=== PATIENT | male | born 1985 | race African-American/Black ===

== ENCOUNTER 2021-07-20 12:12 | Inpatient (IN) ==
[2021-07-20] MEDS ORDERED: SODIUM CHLORIDE 0.9% 1000ML 2,000 ML IV ONE (12:18)
--- NOTE | 2021-07-20 12:24 | Emergency Department Note ---
Impression & Plan DKA (diabetic ketoacidosis), Epigastric abdominal pain, Pancreatitis ED Provider Note NAME: CAMACHO DILLARD AGE: 36 SEX: M : 1985 ARRIVES VIA: Ambulance INFORMANT: Patient ED PROVIDER(S): Chace Cruz DO CHIEF COMPLAINT: Altered mental status HPI: Patient is a 36-year-old male who presents the ER for altered mental status. Patient was traveling to [facility]. He has been stuck at a truck stop for the past day. They note that he went into a car and asked for help. He was very confused and cold. Is complaining of increased urination and feeling very thirsty. He has some mild abdominal pain. No vomiting. He denies any history. No headache or change in vision. No chest pain or shortness of breath. No nausea vomiting or diarrhea. No other exacerbating or remitting factors. History is slightly limited secondary to mentation. ROS: Review of systems is slightly limited secondary to mentation PAST MEDICAL HISTORY:See Below PAST SURGICAL HISTORY:See Below FAMILY HISTORY:See Below SOCIAL HISTORY:See Below HOME MEDICATIONS:See Below ALLERGIES:See Below VITALS:See Below PHYSICAL EXAMINATION: GENERAL: Sitting up in bed, alert, ill-appearing, lethargic EYE EXAM: normal conjunctiva. PERRL and EOM's grossly intact. OROPHARYNX: no exudate, no erythema, lips, buccal mucosa, and tongue normal and mucous membranes are moist NECK: supple, no nuchal rigidity, no adenopathy, non-tender LUNGS: Clear to auscultation. Normal chest wall mechanics HEART: no murmurs, S1 normal and S2 normal ABDOMEN: abdomen soft, non-tender, normo-active bowel sounds, no masses, no rebound or guarding. UPPER EXTREMITIES: upper extremities are grossly normal. LOWER EXTREMITIES: No pitting edema. NEURO EXAM: Lethargic but oriented to person place and year, cranial nerves II- XII intact, normal speech, no weakness of arms, no weakness of legs. No drift. Finger to nose intact. Gross sensation intact. MEDICAL DECISION MAKING: Patient is a 36-year-old male with no significant past medical history the presents ER with above-stated complaint. IV was established blood work was obtained. Labs show leukocytosis of 16,000. No significant anemia. VBG with a pH of 7.0 and a CO2 of close to 9. BMP with a potassium of 5.4. Bicarb is 6. Glucose was over thousand. Lipase was up at 2000. UA was contaminated. Patient was given IV fluids and IV antibiotics. He was given 3 L IV as well as placed on insulin drip and given a bolus. He was monitored closely. He was discussed with the hospitalist as well as the radio host and admitted for further work-up. Triage Nursing notes reviewed. Limited review of prior medical records performed Vital Signs: reviewed and remarkable for tachy Differential diagnosis: Differential diagnoses includes but is not limited to toxic, metabolic, infectious, traumatic, cardiac, neurologic, hematologic, psychiatric and inflammatory etiologies. ER treatment provided: See below Diagnostics interpreted by me: ECG: Sinus rhythm rate 92 Normal axis T wave inversions in the inferior leads as well as nonspecific changes in the inferior and lateral leads Cardiac Monitoring: An order was placed for continuous cardiac monitoring. The monitor shows a rate of 92 with sinus rhythm. Laboratory studies: As stated above and show below. Imaging studies: CT abdomen pelvis shows pancreatitis CT head was negative chest x-ray was unremarkable Consultation(s): As stated above Procedures: none Critical Care: I have personally spent 35 minutes of critical care time in the direct management of this patient. This includes bedside care, interpretation of diagnostic studies, and testing, discussion with consultants, patient, and family members, and other required patient management activities. This 35 minutes is in excess of all separately billable procedures. Past Med/Surg History Medical History (Updated 07/20/21 @ 18:30 by Chace Cruz DO) No known health problems Surgical History (Updated 07/20/21 @ 17:11 by Lidya Art RN) No history of previous surgery Social History Smoking Status: Unknown if ever smoked Preferred Language: Kiswahili Communication Ability: Effective Paper Sorter Required: No Beliefs That Will Affect Care: None Current Living Situation: Alone Feels Safe at Home: Yes Assistive Devices: None Allergies Allergies Allergy/AdvReac Type Severity Reaction Status Date / Time No Known Allergies Allergy Unverified 07/20/21 13:48 Home Meds Home Medications Medication Instructions Recorded Confirmed No Known Home Medications 07/20/21 07/20/21 Results & Data (ED) Vital Signs Vital Signs - 24 hr 07/20/21 12:15 07/20/21 13:00 07/20/21 13:30 Temperature 34.7 C L 33.3 C L Temperature Source Rectal Rectal Pulse Rate 93 H 94 H Respiratory Rate 28 H 22 Respiratory Depth Normal Blood Pressure 112/72 156/82 H Blood Pressure Mean 85 106 Blood Pressure Position Lying Pulse Oximetry 98 99 Oxygen Delivery Method Room Air Room Air Sepsis Recent Fever Within 48 Hours No Sepsis New/Unexplained Change in Mental Status Yes Sepsis Action Taken by Nursing Physician Notified 07/20/21 14:00 Temperature Temperature Source Pulse Rate 102 H Respiratory Rate 24 Respiratory Depth Blood Pressure 152/82 H Blood Pressure Mean 105 Blood Pressure Position Pulse Oximetry 100 Oxygen Delivery Method Room Air Sepsis Recent Fever Within 48 Hours Sepsis New/Unexplained Change in Mental Status Sepsis Action Taken by Nursing Laboratory Data Result diagrams: 07/20/21 14:13 07/20/21 17:36 Lab Results 07/20/21 07/20/21 07/20/21 Range/Units 12:17 12:34 12:34 WBC Cancelled RBC Cancelled Hgb Cancelled POC Hgb (14.0-18.0) g/dl Hct Cancelled POC Hct (42-52) % MCV Cancelled MCH Cancelled MCHC Cancelled RDW Std Deviation Cancelled RDW Coeff of Patrizia Cancelled Plt Count Cancelled MPV Cancelled Immature Gran % (Auto) Cancelled Neut % (Auto) Cancelled Lymph % (Auto) Cancelled Cobb % (Auto) Cancelled Eos % (Auto) Cancelled Baso % (Auto) Cancelled Neut # (Auto) Cancelled Lymph # (Auto) Cancelled Cobb # (Auto) Cancelled Eos # (Auto) Cancelled Baso # (Auto) Cancelled Immature Gran # (Auto) Cancelled Absolute Nucleated RBC Cancelled Nucleated RBC % (auto) Cancelled Neutrophils % (Manual) Cancelled Band Neutrophils % Cancelled Lymphocytes % (Manual) Cancelled Prolymphocyte % Cancelled Reactive Lymphs % (Man) Cancelled Monocytes % (Manual) Cancelled Eosinophils % (Manual) Cancelled Basophils % (Manual) Cancelled Metamyelocytes % (Man) Cancelled Myelocytes % (Man) Cancelled Promyelocytes % (Man) Cancelled Blast Cells % (Manual) Cancelled Plasma Cell % (Manual) Cancelled Other Cells % Cancelled Nucleated RBC % Cancelled Neutrophils # (Manual) Cancelled Band Neutrophils # Cancelled Total Absolute Neuts Cancelled Lymphocytes # (Manual) Cancelled Prolymphocyte # Cancelled Reactive Lymphs # Cancelled Total Abs Lymphocytes Cancelled Monocytes # (Manual) Cancelled Eosinophils # (Manual) Cancelled Basophils # (Manual) Cancelled Metamyelocytes # (Man) Cancelled Myelocytes # (Manual) Cancelled Promyelocytes # (Man) Cancelled Blast Cells # (Man) Cancelled Plasma Cell # (Manual) Cancelled Other Cells # Cancelled Nucleated RBCs # (Man) Cancelled Hypersegmented Neuts Cancelled Hyposegmented Neuts Cancelled Hypogranular Neuts Cancelled Large Granular Lymphs Cancelled # Lrg Granular Lymphs Cancelled Hairy Cells Cancelled Smudge Cells Cancelled Toxic Granulation Cancelled Toxic Vacuolation Cancelled Dohle Bodies Cancelled Qasim Rods Cancelled Platelet Estimate Cancelled Hypogranular Platelets Cancelled Clumped Platelets Cancelled Giant Platelets Cancelled Platelet Satelliting Cancelled RBC Morphology Cancelled Polychromasia Cancelled Hypochromasia Cancelled Poikilocytosis Cancelled Basophilic Stippling Cancelled Anisocytosis Cancelled Microcytosis Cancelled Macrocytosis Cancelled Spherocytes Cancelled Pappenheimer Bodies Cancelled Sickle Cells Cancelled Target Cells Cancelled Tear Drop Cells Cancelled Ovalocytes Cancelled Stomatocytes Cancelled [place]-Rainbow Bodies Cancelled Echinocytes Cancelled Acanthocytes (Spur) Cancelled Rouleaux Cancelled RBC Agglutinates Cancelled Schistocytes Cancelled RBC Morph Comment Cancelled Sezary Cell Cancelled PT 11.3 (9.0-12.0) Seconds INR 1.1 (0.9-1.1) APTT 21.4 (21.0-31.0) Seconds PTT Ratio 0.8 VBG pH (7.36-7.41) VBG pCO2 (38-50) mmHg VBG pO2 mmHg VBG HCO3 mmol/L VBG O2 Saturation % VBG Base Excess mEq/L Barometric Pressure mm/Hg POC Sodium (135-144) mmol/L Sodium (136-145) mmol/L POC Potassium (3.3-5.0) mmol/L Potassium POC Chloride (101-112) mmol/L Chloride (98-107) mmol/L Carbon Dioxide (21-32) mmol/L POC Total CO2 (24-31) mmol/L Anion Gap (3-11) POC Anion Gap (16-25) mmol/L POC BUN (7-18) mg/dl BUN (6-23) mg/dl Creatinine (0.6-1.4) mg/dl POC Creatinine (0.6-1.3) mg/dl Est Cr Clr Drug Dosing Est GFR ( Amer) ml/min Est GFR (Non-Af Amer) ml/min BUN/Creatinine Ratio (10-20) Glucose (70-99(Fasting)) mg/dl POC Glucose > 600 H* (70-99) mg/dl POC Glucose (other) (70-99) mg/dl Lactate (0.4-2.0) mmol/L Calcium (8.5-10.1) mg/dl POC Ioniz Calcium Marian (1.12-1.32) mmol/l Magnesium (1.7-2.4) mg/dl Total Bilirubin (0.2-1.0) mg/dl AST ALT (7-52) U/L Alkaline Phosphatase (34-104) U/L Total Protein (6.0-8.3) gm/dl Albumin (3.4-5.0) gm/dl Globulin (2.5-4.0) gm/dl Albumin/Globulin Ratio (0.9-2) Lipase Urine Color Urine Appearance (Clear) Urine pH (4.5-7.5) Ur Specific [place] (1.000-1.030) Urine Protein (Negative) Urine Glucose (UA) (Negative) Urine Ketones (Negative) Urine Blood (Negative) Urine Nitrite (Negative) Urine Bilirubin (Negative) Urine Urobilinogen (Negative) Ur Leukocyte Esterase (Negative) Urine WBC (Auto) (0-5) /hpf Urine RBC (Auto) (0-4) /hpf U Hyaline Cast (Auto) (0-5) /lpf U Epithel Cells (Auto) (0-5) /lpf Urine Bacteria (Auto) (Negative) Granular Casts (0) /lpf Urine Yeast Urine Opiates Screen (Neg) Ur Methadone, Qual (Neg) Urine Barbiturates (Neg) Ur Phencyclidine (PCP) (Neg) U Amphetamin/Meth Scrn (Neg) MDMA (Ecstasy) Screen (Neg) U Benzodiazepines Scrn (Neg) Ur Cocaine Metabolite (Neg) U Marijuana (THC) Screen (Neg) 07/20/21 07/20/21 07/20/21 Range/Units 12:34 12:34 12:34 WBC RBC Hgb POC Hgb (14.0-18.0) g/dl Hct POC Hct (42-52) % MCV MCH MCHC RDW Std Deviation RDW Coeff of Patrizia Plt Count MPV Immature Gran % (Auto) Neut % (Auto) Lymph % (Auto) Cobb % (Auto) Eos % (Auto) Baso % (Auto) Neut # (Auto) Lymph # (Auto) Cobb # (Auto) Eos # (Auto) Baso # (Auto) Immature Gran # (Auto) Absolute Nucleated RBC Nucleated RBC % (auto) Neutrophils % (Manual) Band Neutrophils % Lymphocytes % (Manual) Prolymphocyte % Reactive Lymphs % (Man) Monocytes % (Manual) Eosinophils % (Manual) Basophils % (Manual) Metamyelocytes % (Man) Myelocytes % (Man) Promyelocytes % (Man) Blast Cells % (Manual) Plasma Cell % (Manual) Other Cells % Nucleated RBC % Neutrophils # (Manual) Band Neutrophils # Total Absolute Neuts Lymphocytes # (Manual) Prolymphocyte # Reactive Lymphs # Total Abs Lymphocytes Monocytes # (Manual) Eosinophils # (Manual) Basophils # (Manual) Metamyelocytes # (Man) Myelocytes # (Manual) Promyelocytes # (Man) Blast Cells # (Man) Plasma Cell # (Manual) Other Cells # Nucleated RBCs # (Man) Hypersegmented Neuts Hyposegmented Neuts Hypogranular Neuts Large Granular Lymphs # Lrg Granular Lymphs Hairy Cells Smudge Cells Toxic Granulation Toxic Vacuolation Dohle Bodies Qasim Rods Platelet Estimate Hypogranular Platelets Clumped Platelets Giant Platelets Platelet Satelliting RBC Morphology Polychromasia Hypochromasia Poikilocytosis Basophilic Stippling Anisocytosis Microcytosis Macrocytosis Spherocytes Pappenheimer Bodies Sickle Cells Target Cells Tear Drop Cells Ovalocytes Stomatocytes [place]-Rainbow Bodies Echinocytes Acanthocytes (Spur) Rouleaux RBC Agglutinates Schistocytes RBC Morph Comment Sezary Cell PT (9.0-12.0) Seconds INR (0.9-1.1) APTT (21.0-31.0) Seconds PTT Ratio VBG pH 7.06 L (7.36-7.41) VBG pCO2 30 L (38-50) mmHg VBG pO2 70 mmHg VBG HCO3 8 mmol/L VBG O2 Saturation 89.0 % VBG Base Excess -21.0 mEq/L Barometric Pressure 730.2 mm/Hg POC Sodium (135-144) mmol/L Sodium 130 L (136-145) mmol/L POC Potassium (3.3-5.0) mmol/L Potassium TNP POC Chloride (101-112) mmol/L Chloride 93 L (98-107) mmol/L Carbon Dioxide 7 L* (21-32) mmol/L POC Total CO2 (24-31) mmol/L Anion Gap 30 H (3-11) POC Anion Gap (16-25) mmol/L POC BUN (7-18) mg/dl BUN 55 H (6-23) mg/dl Creatinine 3.38 H (0.6-1.4) mg/dl POC Creatinine (0.6-1.3) mg/dl Est Cr Clr Drug Dosing Not Reportable Est GFR ( Amer) 25.8 ml/min Est GFR (Non-Af Amer) 22.3 ml/min BUN/Creatinine Ratio 16.3 (10-20) Glucose 1010 H* (70-99(Fasting)) mg/dl POC Glucose (70-99) mg/dl POC Glucose (other) (70-99) mg/dl Lactate 1.9 (0.4-2.0) mmol/L Calcium 9.2 (8.5-10.1) mg/dl POC Ioniz Calcium Marian (1.12-1.32) mmol/l Magnesium 3.4 H (1.7-2.4) mg/dl Total Bilirubin 0.4 (0.2-1.0) mg/dl AST TNP ALT 61 H (7-52) U/L Alkaline Phosphatase 123 H (34-104) U/L Total Protein 8.7 H (6.0-8.3) gm/dl Albumin 3.9 (3.4-5.0) gm/dl Globulin 4.8 H (2.5-4.0) gm/dl Albumin/Globulin Ratio 0.8 L (0.9-2) Lipase Urine Color Urine Appearance (Clear) Urine pH (4.5-7.5) Ur Specific [place] (1.000-1.030) Urine Protein (Negative) Urine Glucose (UA) (Negative) Urine Ketones (Negative) Urine Blood (Negative) Urine Nitrite (Negative) Urine Bilirubin (Negative) Urine Urobilinogen (Negative) Ur Leukocyte Esterase (Negative) Urine WBC (Auto) (0-5) /hpf Urine RBC (Auto) (0-4) /hpf U Hyaline Cast (Auto) (0-5) /lpf U Epithel Cells (Auto) (0-5) /lpf Urine Bacteria (Auto) (Negative) Granular Casts (0) /lpf Urine Yeast Urine Opiates Screen (Neg) Ur Methadone, Qual (Neg) Urine Barbiturates (Neg) Ur Phencyclidine (PCP) (Neg) U Amphetamin/Meth Scrn (Neg) MDMA (Ecstasy) Screen (Neg) U Benzodiazepines Scrn (Neg) Ur Cocaine Metabolite (Neg) U Marijuana (THC) Screen (Neg) 07/20/21 07/20/21 07/20/21 Range/Units 12:34 12:39 13:00 WBC RBC Hgb POC Hgb 17.0 (14.0-18.0) g/dl Hct POC Hct 50 (42-52) % MCV MCH MCHC RDW Std Deviation RDW Coeff of Patrizia Plt Count MPV Immature Gran % (Auto) Neut % (Auto) Lymph % (Auto) Cobb % (Auto) Eos % (Auto) Baso % (Auto) Neut # (Auto) Lymph # (Auto) Cobb # (Auto) Eos # (Auto) Baso # (Auto) Immature Gran # (Auto) Absolute Nucleated RBC Nucleated RBC % (auto) Neutrophils % (Manual) Band Neutrophils % Lymphocytes % (Manual) Prolymphocyte % Reactive Lymphs % (Man) Monocytes % (Manual) Eosinophils % (Manual) Basophils % (Manual) Metamyelocytes % (Man) Myelocytes % (Man) Promyelocytes % (Man) Blast Cells % (Manual) Plasma Cell % (Manual) Other Cells % Nucleated RBC % Neutrophils # (Manual) Band Neutrophils # Total Absolute Neuts Lymphocytes # (Manual) Prolymphocyte # Reactive Lymphs # Total Abs Lymphocytes Monocytes # (Manual) Eosinophils # (Manual) Basophils # (Manual) Metamyelocytes # (Man) Myelocytes # (Manual) Promyelocytes # (Man) Blast Cells # (Man) Plasma Cell # (Manual) Other Cells # Nucleated RBCs # (Man) Hypersegmented Neuts Hyposegmented Neuts Hypogranular Neuts Large Granular Lymphs # Lrg Granular Lymphs Hairy Cells Smudge Cells Toxic Granulation Toxic Vacuolation Dohle Bodies Qasim Rods Platelet Estimate Hypogranular Platelets Clumped Platelets Giant Platelets Platelet Satelliting RBC Morphology Polychromasia Hypochromasia Poikilocytosis Basophilic Stippling Anisocytosis Microcytosis Macrocytosis Spherocytes Pappenheimer Bodies Sickle Cells Target Cells Tear Drop Cells Ovalocytes Stomatocytes [place]-Rainbow Bodies Echinocytes Acanthocytes (Spur) Rouleaux RBC Agglutinates Schistocytes RBC Morph Comment Sezary Cell PT (9.0-12.0) Seconds INR (0.9-1.1) APTT (21.0-31.0) Seconds PTT Ratio VBG pH (7.36-7.41) VBG pCO2 (38-50) mmHg VBG pO2 mmHg VBG HCO3 mmol/L VBG O2 Saturation % VBG Base Excess mEq/L Barometric Pressure mm/Hg POC Sodium 133 L (135-144) mmol/L Sodium (136-145) mmol/L POC Potassium 5.3 H (3.3-5.0) mmol/L Potassium POC Chloride 104 (101-112) mmol/L Chloride (98-107) mmol/L Carbon Dioxide (21-32) mmol/L POC Total CO2 9 L* (24-31) mmol/L Anion Gap (3-11) POC Anion Gap 25.0 (16-25) mmol/L POC BUN 75 H (7-18) mg/dl BUN (6-23) mg/dl Creatinine (0.6-1.4) mg/dl POC Creatinine 3.1 H (0.6-1.3) mg/dl Est Cr Clr Drug Dosing Est GFR ( Amer) ml/min Est GFR (Non-Af Amer) ml/min BUN/Creatinine Ratio (10-20) Glucose (70-99(Fasting)) mg/dl POC Glucose (70-99) mg/dl POC Glucose (other) > 700 H* (70-99) mg/dl Lactate (0.4-2.0) mmol/L Calcium (8.5-10.1) mg/dl POC Ioniz Calcium Marian 1.07 L (1.12-1.32) mmol/l Magnesium (1.7-2.4) mg/dl Total Bilirubin (0.2-1.0) mg/dl AST ALT (7-52) U/L Alkaline Phosphatase (34-104) U/L Total Protein (6.0-8.3) gm/dl Albumin (3.4-5.0) gm/dl Globulin (2.5-4.0) gm/dl Albumin/Globulin Ratio (0.9-2) Lipase Cancelled Urine Color Yellow Urine Appearance Clear (Clear) Urine pH 5.0 (4.5-7.5) Ur Specific [place] 1.027 (1.000-1.030) Urine Protein 2+ H (Negative) Urine Glucose (UA) 3+ H (Negative) Urine Ketones 1+ H (Negative) Urine Blood 3+ H (Negative) Urine Nitrite Negative (Negative) Urine Bilirubin Negative (Negative) Urine Urobilinogen Negative (Negative) Ur Leukocyte Esterase Negative (Negative) Urine WBC (Auto) 5-10 H (0-5) /hpf Urine RBC (Auto) 0-4 (0-4) /hpf U Hyaline Cast (Auto) 10-30 H (0-5) /lpf U Epithel Cells (Auto) >30 H (0-5) /lpf Urine Bacteria (Auto) 1+ H (Negative) Granular Casts 1-5 H (0) /lpf Urine Yeast Not Reportable Urine Opiates Screen (Neg) Ur Methadone, Qual (Neg) Urine Barbiturates (Neg) Ur Phencyclidine (PCP) (Neg) U Amphetamin/Meth Scrn (Neg) MDMA (Ecstasy) Screen (Neg) U Benzodiazepines Scrn (Neg) Ur Cocaine Metabolite (Neg) U Marijuana (THC) Screen (Neg) 07/20/21 07/20/21 07/20/21 Range/Units 13:00 14:13 14:21 WBC 16.40 H RBC 5.41 Hgb 14.7 POC Hgb (14.0-18.0) g/dl Hct 45.8 POC Hct (42-52) % MCV 84.7 MCH 27.2 MCHC 32.1 RDW Std Deviation 42.4 RDW Coeff of Patrizia 13.9 Plt Count 283 MPV 13.0 H Immature Gran % (Auto) 0.5 Neut % (Auto) 88.6 Lymph % (Auto) 8.5 Cobb % (Auto) 2.3 Eos % (Auto) 0.0 Baso % (Auto) 0.1 Neut # (Auto) 14.54 H Lymph # (Auto) 1.39 Cobb # (Auto) 0.37 Eos # (Auto) 0.00 Baso # (Auto) 0.01 Immature Gran # (Auto) 0.09 H Absolute Nucleated RBC Nucleated RBC % (auto) Neutrophils % (Manual) Band Neutrophils % Lymphocytes % (Manual) Prolymphocyte % Reactive Lymphs % (Man) Monocytes % (Manual) Eosinophils % (Manual) Basophils % (Manual) Metamyelocytes % (Man) Myelocytes % (Man) Promyelocytes % (Man) Blast Cells % (Manual) Plasma Cell % (Manual) Other Cells % Nucleated RBC % Neutrophils # (Manual) Band Neutrophils # Total Absolute Neuts Lymphocytes # (Manual) Prolymphocyte # Reactive Lymphs # Total Abs Lymphocytes Monocytes # (Manual) Eosinophils # (Manual) Basophils # (Manual) Metamyelocytes # (Man) Myelocytes # (Manual) Promyelocytes # (Man) Blast Cells # (Man) Plasma Cell # (Manual) Other Cells # Nucleated RBCs # (Man) Hypersegmented Neuts Hyposegmented Neuts Hypogranular Neuts Large Granular Lymphs # Lrg Granular Lymphs Hairy Cells Smudge Cells Toxic Granulation Toxic Vacuolation Dohle Bodies Qasim Rods Platelet Estimate Hypogranular Platelets Clumped Platelets Giant Platelets Platelet Satelliting RBC Morphology Polychromasia Hypochromasia Poikilocytosis Basophilic Stippling Anisocytosis Microcytosis Macrocytosis Spherocytes Pappenheimer Bodies Sickle Cells Target Cells Tear Drop Cells Ovalocytes Stomatocytes [place]-Rainbow Bodies Echinocytes Acanthocytes (Spur) Rouleaux RBC Agglutinates Schistocytes RBC Morph Comment Sezary Cell PT (9.0-12.0) Seconds INR (0.9-1.1) APTT (21.0-31.0) Seconds PTT Ratio VBG pH (7.36-7.41) VBG pCO2 (38-50) mmHg VBG pO2 mmHg VBG HCO3 mmol/L VBG O2 Saturation % VBG Base Excess mEq/L Barometric Pressure mm/Hg POC Sodium (135-144) mmol/L Sodium (136-145) mmol/L POC Potassium (3.3-5.0) mmol/L Potassium POC Chloride (101-112) mmol/L Chloride (98-107) mmol/L Carbon Dioxide (21-32) mmol/L POC Total CO2 (24-31) mmol/L Anion Gap (3-11) POC Anion Gap (16-25) mmol/L POC BUN (7-18) mg/dl BUN (6-23) mg/dl Creatinine (0.6-1.4) mg/dl POC Creatinine (0.6-1.3) mg/dl Est Cr Clr Drug Dosing Est GFR ( Amer) ml/min Est GFR (Non-Af Amer) ml/min BUN/Creatinine Ratio (10-20) Glucose (70-99(Fasting)) mg/dl POC Glucose > 600 H* (70-99) mg/dl POC Glucose (other) (70-99) mg/dl Lactate (0.4-2.0) mmol/L Calcium (8.5-10.1) mg/dl POC Ioniz Calcium Marian (1.12-1.32) mmol/l Magnesium (1.7-2.4) mg/dl Total Bilirubin (0.2-1.0) mg/dl AST ALT (7-52) U/L Alkaline Phosphatase (34-104) U/L Total Protein (6.0-8.3) gm/dl Albumin (3.4-5.0) gm/dl Globulin (2.5-4.0) gm/dl Albumin/Globulin Ratio (0.9-2) Lipase Urine Color Urine Appearance (Clear) Urine pH (4.5-7.5) Ur Specific [place] (1.000-1.030) Urine Protein (Negative) Urine Glucose (UA) (Negative) Urine Ketones (Negative) Urine Blood (Negative) Urine Nitrite (Negative) Urine Bilirubin (Negative) Urine Urobilinogen (Negative) Ur Leukocyte Esterase (Negative) Urine WBC (Auto) (0-5) /hpf Urine RBC (Auto) (0-4) /hpf U Hyaline Cast (Auto) (0-5) /lpf U Epithel Cells (Auto) (0-5) /lpf Urine Bacteria (Auto) (Negative) Granular Casts (0) /lpf Urine Yeast Urine Opiates Screen Neg (Neg) Ur Methadone, Qual Neg (Neg) Urine Barbiturates Neg (Neg) Ur Phencyclidine (PCP) Neg (Neg) U Amphetamin/Meth Scrn Neg (Neg) MDMA (Ecstasy) Screen Neg (Neg) U Benzodiazepines Scrn Neg (Neg) Ur Cocaine Metabolite Neg (Neg) U Marijuana (THC) Screen Neg (Neg) Administered Medications Insulin Human Regular 250 (units/ Sodium Chloride) 250 mls @ 12 mls/hr IV .[id number] [facility]; Protocol Stop: 08/19/21 12:59 Last Titration: 07/20/21 17:50 Dose: 14.4 units/hr, 14.4 mls/hr Documented by: [id number] Cosigned by: [id number] Admin: 07/20/21 16:36 Dose: Not Given Documented by: [id number] Titration: 07/20/21 16:30 Dose: 12 units/hr, 12 mls/hr Documented by: [id number] Cosigned by: [id number] Admin: 07/20/21 13:26 Dose: 10 units/hr, 10 mls/hr Documented by: [id number] Cosigned by: [id number] Insulin Aspart (Insulin Aspart Per Unit) 0 units SC ACHS [facility] Stop: 08/19/21 16:29 Last Admin: 07/20/21 16:38 Dose: Not Given Documented by: [id number] Potassium Phosphate (Pot Phosphate Monobasic W/ Sod Tab) 1 tab PO QID [facility] Stop: 08/19/21 16:59 Last Admin: 07/20/21 17:50 Dose: 1 tab Documented by: [id number] Discontinued Medications Sodium Chloride (Nss 1000ml) 2,000 mls @ 999 mls/hr IV .Q2H1M ONE Stop: 07/20/21 14:18 Last Infusion: 07/20/21 14:28 Dose: 0 mls/hr Documented by: [id number] Admin: 07/20/21 12:38 Dose: 999 mls/hr Documented by: [id number] Parenteral Electrolytes (Plasma-Lyte A) 1,000 mls @ 999 mls/hr IV .Q1H1M ONE Stop: 07/20/21 13:46 Last Infusion: 07/20/21 14:28 Dose: 0 mls/hr Documented by: [id number] Admin: 07/20/21 13:27 Dose: 999 mls/hr Documented by: [id number] Cefepime HCl (Maxipime) 2,000 mg in 20 mls @ 5 mls/min IV NOW [facility]; Protocol Stop: 07/20/21 13:23 Last Admin: 07/20/21 13:58 Dose: 5 mls/min Documented by: [id number] Sodium Chloride (Nss 1000ml) 1,000 mls @ 250 mls/hr IV .Q4H [facility] Stop: 08/19/21 14:59 Last Admin: 07/20/21 16:59 Dose: Not Given Documented by: [id number] Lactated Ringer's (Lr) 2,000 mls @ 999 mls/hr IV .Q2H1M ONE Stop: 07/20/21 17:15 Last Infusion: 07/20/21 18:22 Dose: 0 mls/hr Documented by: [id number] Admin: 07/20/21 16:59 Dose: 999 mls/hr Documented by: [id number] Insulin Human Regular (Novolin-R Bolus From Bag) 10 units IV ONE ONE Stop: 07/20/21 13:31 Last Admin: 07/20/21 13:28 Dose: 10 units Documented by: [id number] Cosigned by: [id number] Miscellaneous (Stat Iv Infusion Titration Per Protocol) 1 ea N/A NOW STA Stop: 07/20/21 12:47 Last Admin: 07/20/21 13:58 Dose: Not Given Documented by: [id number] Miscellaneous (Dka Goal Range 150-250 Mg/Dl) 1 ea N/A ONE ONE Stop: 07/20/21 12:47 Last Admin: 07/20/21 13:58 Dose: Not Given Documented by: [id number] Imaging Data Radiologist's Impression: Chest X-Ray 07/20/21 12:18 XR chest 1V portable CLINICAL HISTORY: SEPSIS TECHNIQUE: Single frontal radiograph of the chest was obtained. Comparison: None available at the time of this dictation. FINDINGS: No lines and tubes are seen. The cardiomediastinal silhouette is normal. The lungs are clear. No evidence of pleural effusion or pneumothorax. IMPRESSION: No acute chest disease. ACT 112: Negative or not required by law. Electronically signed by: Joseph Townsend M.D. 07/20/2021 1:[address] 07/20/21 12:18 CT head/brain wo con CLINICAL HISTORY: 36 years-old Male with ams. Acutely altered mental status with weakness TECHNIQUE: Multiple axial CT images of the head were obtained without contrast. A dose lowering technique was utilized adhering to the principles of ALARA. CT DOSE: 2045.83 mGy.cm COMPARISON: None. FINDINGS: No acute intracranial hemorrhage, midline shift, intracranial mass, hydrocephalus, territorial ischemia or abnormal extra-axial collection. The calvarium is intact. There is a mild nonspecific dermal thickening noted within the scalp. The paranasal sinuses, mastoid air cells, and middle ear cavities are clear. IMPRESSION: No acute intracranial abnormality. ACT 112: Negative or not required by law. The above report was generated using voice recognition software. It may contain grammatical, syntax or spelling errors. Electronically signed by: Naveen Morillo M.D. 07/20/2021 2:04 PM Abdomen/Pelvis CT 07/20/21 12:49 CT abd pelvis wo con CLINICAL HISTORY: abd pain TECHNIQUE: Helical axial images of the abdomen and pelvis were obtained. Automated dose lowering techniques and/or adjustment according to patient size were utilized for this exam. This exam was performed without intravenous contrast. COMPARISON: None available at the time of this dictation. FINDINGS: Lower chest: No acute abnormality Liver: Hepatic steatosis is noted. Gallbladder and biliary tree: No calcified gallstones. Normal caliber wall. No intra- or extrahepatic biliary ductal dilation. Pancreas: Soft tissue stranding is seen about the pancreas. There is edema about the pancreatic head. Spleen: Unremarkable. Adrenals: Unremarkable. Kidneys and ureters: Unremarkable. Bladder: Terry catheter is seen. Reproductive organs: Unremarkable. Bowel: Unremarkable. Lymph nodes Retroperitoneal: Unremarkable. Mesenteric: Unremarkable. Pelvic: Unremarkable. Peritoneum: Normal. Vessels: Unremarkable. Abdominal wall: Unremarkable. Bones: Unremarkable. IMPRESSION: The pancreatic edema and peripancreatic stranding compatible with acute pa ncreatitis. No evidence of pseudocyst or abscess formation. ACT 112: Negative or not required by law. Electronically signed by: Joseph Townsend M.D. 07/20/2021 2:26 PM Discharge Plan Visit Data Chief Complaint: Hyperglycemia ED Provider: Chace Cruz Discharge Problem: DKA (diabetic ketoacidosis), Epigastric abdominal pain, Pancreatitis Patient Disposition: Admitted As Inpatient Discharge Instructions Interventions: ED Discharge Assessment Last Done: 07/20/21 15:45
[2021-07-20] MEDS ORDERED: GLUCOSE 10 TABS/TUBE PO PRN (12:46)
[2021-07-20] MEDS ORDERED: STAT IV Infusion **Titration per Protocol STA ×4 (12:46→17:51)
[2021-07-20] MEDS ORDERED: GLUCAGON FOR INJ 1 MG VIAL SQ PRN (12:46)
[2021-07-20] MEDS ORDERED: DEXTROSE 50% 50 ML SYRINGE IV PRN (12:46)
[2021-07-20] MEDS ORDERED: NORMOSOL-R 1,000 ML IV ONE (12:46)
[2021-07-20] MEDS ORDERED: GLUCOSE 40% GEL 15 GM TUBE PO PRN (12:46)
[2021-07-20] MEDS ORDERED: DKA GOAL RANGE 150-250 mg/dl ONE ×2 (12:46→15:24)
[2021-07-20] MEDS ORDERED: CARBOHYDRATES FOR HYPOGLYCEMIA PO PRN (12:46)
[2021-07-20 12:49] LABS: pH VBG 7.06 (7.36-7.41)
[2021-07-20 12:52] LABS: iSTAT Blood Urea Nitrogen 75 mg/dl (7-18); iSTAT Carbon Dioxide 9 mmol/L (24-31); iSTAT Chloride 104 mmol/L (101-112); iSTAT Creatinine 3.1 mg/dl (0.6-1.3); iSTAT Glucose > 700 mg/dl (70-99); iSTAT Hematocrit 50 % (42-52); iSTAT Ionized Calcium 1.07 mmol/l (1.12-1.32); iSTAT Potassium 5.3 mmol/L (3.3-5.0); iSTAT Sodium 133 mmol/L (135-144)
[2021-07-20 13:13] LABS: INR 1.1 (0.9-1.1); Partial Thromboplastin Ratio 0.8; Partial Thromboplastin Time 21.4 Seconds (21.0-31.0); Prothrombin Time 11.3 Seconds (9.0-12.0)
[2021-07-20 13:13] LABS: Appearance Urine Clear (Clear); Bilirubin Urine Negative (Negative); Blood Urine 3+ (Negative); Color Urine Yellow; Epithelial Cell Urine Auto >30 /lpf (0-5); Glucose Urine UA 3+ (Negative); Ketones Urine 1+ (Negative); Leukocyte Esterase Urine Negative (Negative); Nitrite Urine Negative (Negative); Protein Urine 2+ (Negative); RBC Urine Automated 0-4 /hpf (0-4); Specific Gravity Urine 1.027 (1.000-1.030); Urobilinogen Urine Negative (Negative)
[2021-07-20 13:19] LABS: Alanine Aminotransferase 61 U/L (7-52); Albumin Globulin Ratio 0.8 (0.9-2); Albumin Level 3.9 gm/dl (3.4-5.0); Alkaline Phosphatase 123 U/L (34-104); Anion Gap 30 (3-11); BUN Creatinine Ratio 16.3 (10-20); Bilirubin,Total 0.4 mg/dl (0.2-1.0); Blood Urea Nitrogen 55 mg/dl (6-23); Calcium 9.2 mg/dl (8.5-10.1); Carbon Dioxide 7 mmol/L (21-32); Chloride 93 mmol/L (98-107); Est GFR (African American) 25.8 ml/min; Est GFR (Non-African American) 22.3 ml/min; Globulin 4.8 gm/dl (2.5-4.0); Magnesium 3.4 mg/dl (1.7-2.4); Sodium 130 mmol/L (136-145); Total Protein 8.7 gm/dl (6.0-8.3)
[2021-07-20] MEDS ORDERED: CEFEPIME 2,000 MG/20 ML VIAL IV STA (13:20)
--- NOTE | 2021-07-20 13:22 | XRay Report ---
XR chest 1V portable CLINICAL HISTORY: SEPSIS TECHNIQUE: Single frontal radiograph of the chest was obtained. Comparison: None available at the time of this dictation. FINDINGS: No lines and tubes are seen. The cardiomediastinal silhouette is normal. The lungs are clear. No evid ence of pleural effusion or pneumothorax. IMPRESSION: No acute chest disease. ACT 112: Negative or not required by law. Electronically signed by: Joseph Townsend M.D. 07/20/2021 1:21 PM
[2021-07-20] MEDS: INSULIN REGULAR 250 UNITS in SODIUM CHLORIDE 0.9% 247.5 ML IV SCH ×2 (13:26→16:36)
[2021-07-20 13:28] LABS: Glucose 1010 mg/dl (70-99(Fasting))
[2021-07-20] MEDS ORDERED: NovoLIN-R BOLUS FROM BAG IV ONE (13:30)
[2021-07-20 13:37] LABS: Bacteria Urine Automated 1+ (Negative)
--- NOTE | 2021-07-20 14:06 | CT Scan Report ---
CT head/brain wo con CLINICAL HISTORY: 36 years-old Male with ams. Acutely altered mental status with weakness TECHNIQUE: Multiple axial CT images of the head were obtained without contrast. A dose lowering tech nique was utilized adhering to the principles of ALARA. CT DOSE: 2045.83 mGy.cm COMPARISON: None. FINDINGS: No acute intracranial hemorrhage, midline shift, intracranial mass, hydrocephalus, territorial ischem ia or abnormal extra-axial collection. The calvarium is intact. There is a mild nonspecific dermal thickening noted within the scalp. The pa ranasal sinuses, mastoid air cells, and middle ear cavities are clear. IMPRESSION: No acute intracranial abnormality. ACT 112: Negative or not required by law. The above report was generated using voice recognition software. It may contain grammatical, syntax o r spelling errors. Electronically signed by: Naveen Morillo M.D. 07/20/2021 2:04 PM
--- NOTE | 2021-07-20 14:27 | CT Scan Report ---
CT abd pelvis wo con CLINICAL HISTORY: abd pain TECHNIQUE: Helical axial images of the abdomen and pelvis were obtained. Automated dose lowering tech niques and/or adjustment according to patient size were utilized for this exam. This exam was perfor med without intravenous contrast. COMPARISON: None available at the time of this dictation. FINDINGS: Lower chest: No acute abnormality Liver: Hepatic steatosis is noted. Gallbladder and biliary tree: No calcified gallstones. Normal caliber wall. No intra- or extrahepatic biliary ductal dilation. Pancreas: Soft tissue stranding is seen about the pancreas. There is edema about the pancreatic head. Spleen: Unremarkable. Adrenals: Unremarkable. Kidneys and ureters: Unremarkable. Bladder: Etrry catheter is seen. Reproductive organs: Unremarkable. Bowel: Unremarkable. Lymph nodes Retroperitoneal: Unremarkable. Mesenteric: Unremarkable. Pelvic: Unremarkable. Peritoneum: Normal. Vessels: Unremarkable. Abdominal wall: Unremarkable. Bones: Unremarkable. IMPRESSION: The pancreatic edema and peripancreatic stranding compatible with acute pancreatitis. No evidence of pseudocyst or abscess formation. ACT 112: Negative or not required by law. Electronically signed by: Joseph Townsend M.D. 07/20/2021 2:26 PM
[2021-07-20 14:39] LABS: Basophils # (auto) 0.01 K/uL (0-0.2); Basophils % (auto) 0.1 %; Hematocrit (blood only) 45.8 % (42-52); Hemoglobin 14.7 g/dL (14.0-18.0); Immature Granulocytes # (auto) 0.09 K/uL (0.00-0.02); Immature Granulocytes % (auto) 0.5 %; Lymphocytes # (auto) 1.39 K/uL (1.2-3.4); Lymphocytes % (auto) 8.5 %; Mean Corpuscular Hemoglobin 27.2 pg (25-34); Mean Corpuscular Hgb Conc 32.1 g/dL (32-36); Mean Corpuscular Volume 84.7 fL (80-100); Monocytes # (auto) 0.37 K/uL (0.11-0.59); Monocytes % (auto) 2.3 %; Neutrophils # (auto) 14.54 K/uL (1.4-6.5); Neutrophils % (auto) 88.6 %; Platelet Count 283 K/uL (130-400); RDW Coefficient of Variation 13.9 % (11.5-14.5); RDW Standard Deviation 42.4 fL (36.4-46.3); Red Blood Count 5.41 M/uL (4.7-6.1)
--- NOTE | 2021-07-20 14:55 | Electrocardiogram Report ---
Test Reason : Blood Pressure : / mmHG Vent. Rate : 092 BPM Atrial Rate : 092 BPM P-R Int : 126 ms QRS Dur : 108 ms QT Int : 400 ms P-R-T Axes : 071 057 -35 degrees QTc Int : 494 ms Normal sinus rhythm with short MT Abnormal ECG No previous ECGs available Confirmed by Uziel Rahman ([id number]) on 07/20/2021 2:55:20 PM Referred By: Confirmed By:Uziel Rahman
[2021-07-20] MEDS ORDERED: SODIUM CHLORIDE 0.9% 1000ML 1,000 ML IV SCH (15:00)
[2021-07-20 15:07] LABS: Amphetamines+Metham, Urine Neg (Neg); Barbiturates, Urine Neg (Neg); Benzodiazepine, Urine Neg (Neg); Cocaine, Urine Neg (Neg); MDMA (Ecstacy), Urine Neg (Neg); Methadone, Urine Neg (Neg); Opiate, Urine Neg (Neg); Phencyclidine, Urine Neg (Neg)
[2021-07-20] MEDS ORDERED: LACTATED RINGER'S 2,000 ML IV ONE (15:15)
[2021-07-20] MEDS ORDERED: PHARMACY GLYCEMIC MGMT CONSULT PRN (15:21)
[2021-07-20] MEDS ORDERED: INSULIN REGULAR 250 UNITS in SODIUM CHLORIDE 0.9% 247.5 ML IV SCH (15:30)
--- NOTE | 2021-07-20 15:45 | Critical Care Progress Note ---
Date of Service July 20, 2021 Assessment & Plan (1) DKA (diabetic ketoacidosis): (2) Epigastric abdominal pain: (3) Pancreatitis: Plan: ICU Assessment and Plans Reason Critically Ill: 36-year-old male here with no PMHx who presented with 'feeling unwell', nausea, polydipsia and who was admitted for DKA. Neuro - encephalopathy likely 2/2 to DKA, will continue to monitor CAM ICU: NEGATIVE Sedation: none Analgesia: none Cardiac - elevated BP and HR noted, likely secondary to DKA hypovolemia, recieved 3L fluid in ED will give 2L LR and continue to monitor Respiratory - Concern for carbon monoxide poisoning given overnight in car, ordered carb oxyhemoglobin GI - npo RENAL/LYTES - Patient in DKA last glucose 1010 Vbg 7.0630 K 5.3, continue to monitor, replete if under 5.3 phos pending bicarb 7, anion gap 30 insulin drip 10U/hr, received 10U bolus in ED BMP and VBg q4 Recieved 3L fluid in ED, ordered 2L LR bolus - wheat in place, No concerns at this time. ENDO - insulin drip 10U/hr, received 10U bolus in ED BMP and VBg q4 hospice educator ordered HEME - Stable H&H. Will monitor for any drops in the setting of Heparin gtt ID - No concerns for infection at this point. INTEGUMENTARY - skin warm dry intact, correct hypothermia with bear hugger LINES/IV ACCESS - PIVs intact. Wheat intact DVT PROPHYLAXIS - Heparin gtt. Thank you for allowing us to be part of this patient's care. Please refer to Dr. Griffin's documentation for any further recommendations. Supervising Physician Co-Signing Physician Notes Patient seen and examined. EMR reviewed. Discussed with ER staff and with family practice resident. Agree with assessment plan as noted. I participated in the physical exam as well as medical decision-making. New onset diabetes with severe DKA and profound acidosis with acute renal failure and hyperkalemia. He is likely under resuscitated currently and requires additional crystalloid. We will continue the insulin infusion. Layne nue insulin until the patient's anion gap closes, he is tolerating p.o., and subcutaneous insulin on board. He will need follow-up with the hospice educator. We will continue to follow his kidney function with druze of effective circulating volume. Hopefully it continues to improve. May require antihypertensives. Hydralazine will be used as needed but hopefully can transition to EVERARDO inhibitor given his proteinuria and diabetes if tolerated by kidney function. No indication for antibiotics. Continue to trend white blood cell count. Will likely need aggressive phosphate and potassium repletion. Continue to follow the patient's encephalopathy and labs. Once glucose less than 200, change IV fluids to dextrose containing solution and continue insulin drip until gap closed. Patient is critically ill at this point time with significant possibility of clinical deterioration and/or . Subjective Patient seen at bedside calm comfortable cooperative, states he wants to get back to his truck, wants a cup of water. Per patient he was 'feeling unwell' for the past 2 days, drank 64 pints of water 12oz redbull and an orange and vomitted, states he has never felt this way before. He denies any PMH, PSH, FH, Allergies, denies smoking and alcohol, states he has taking 'focus medicine' from his friend and states it did not help him focus. Patient states he has some epigastric pain and some abdominal tenderness, no tenderness in RUQ of abdomen. Patient states he has some mild SOB, states he feels like he can't get enough air. Per nursing he was parked in a truck stop for over a day, eventually knocked on the door of another tank truck milk receiver who called 911 and brought him to the ED. Patient noted to be hypothermic on vitals via rectal temp, bear hugger present. Wheat present. Review of Systems Review of Systems: Positive epigastric pain polydipsia polyuria, SOB, nausea Negative fever chills Negative headache dizziness Negative chest pain palpitations Negative vomitting diarrhea constipation Negative numbness tingling rash swelling Physical Exam Constitutional: + obese, cooperative and comfortable Eyes: PERRL, conjunctivae normal, anicteric sclerae ENMT: external ear and nose normal, oropharynx normal Neck: trachea midline, no thyromegaly Respiratory: normal respiratory effort Auscultation: lungs clear to auscultation bilaterally Cardiovascular: RRR, no murmur, no edema Chest (Breasts): Chest: normal inspection of chest Gastrointestinal (Abdomen): Inspection/Auscultation: abdomen normal to inspection Percussion/Palpation: + abdomen tender (epigastric region) and abdomen soft Skin: no rashes, warm and dry Neurologic: PERRL, EOMI, accommodation nl, no face palsy, no dysarthria CN's II-XI intact bilaterally Psychiatric: Orientation: oriented to person Genitourinary: Wheat noted Results & Data Results & Data ([facility]) Vital Signs (Past 12 Hours) Vital Signs Temp Pulse Resp BP Pulse Ox 07/20/21 15:00 34.1 C L 07/20/21 14:00 102 H 24 152/82 H 100 07/20/21 13:30 33.3 C L 07/20/21 13:00 94 H 22 156/82 H 99 07/20/21 12:15 34.7 C L 93 H 28 H 112/72 98 Critical Care Results & Data Vital Signs (Past 12 Hours) Vital Signs Temp Pulse Resp BP Pulse Ox 07/20/21 15:00 34.1 C L 07/20/21 14:00 102 H 24 152/82 H 100 07/20/21 13:30 33.3 C L 07/20/21 13:00 94 H 22 156/82 H 99 07/20/21 12:15 34.7 C L 93 H 28 H 112/72 98 Lab & Micro Results (Past 24 Hours) RBC 5.41 M/uL (4.7-6.1) 07/20/21 WBC 16.40 K/uL (4.8-10.8) H 07/20/21 Hgb 14.7 g/dL (14.0-18.0) 07/20/21 Hct 45.8 % (42-52) 07/20/21 MCV 84.7 fL (80-100) 07/20/21 MCH 27.2 pg (25-34) 07/20/21 MCHC 32.1 g/dL (32-36) 07/20/21 RDW Standard Deviation 42.4 fL (36.4-46.3) 07/20/21 RDW Coefficient of Variation 13.9 % (11.5-14.5) 07/20/21 Plt Count 283 K/uL (130-400) 07/20/21 MPV 13.0 fL (7.4-10.4) H 07/20/21 Neutrophils (%) (Auto) 88.6 % 07/20/21 Lymphocytes (%) (Auto) 8.5 % 07/20/21 Monocytes # (Auto) 0.37 K/uL (0.11-0.59) 07/20/21 Eosinophils # (Auto) 0.00 K/uL (0-0.5) 07/20/21 Immature Granulocyte % (Auto) 0.5 % 07/20/21 Neutrophils # (Auto) 14.54 K/uL (1.4-6.5) H 07/20/21 Lymphocytes # (Auto) 1.39 K/uL (1.2-3.4) 07/20/21 Monocytes # (Auto) 0.37 K/uL (0.11-0.59) 07/20/21 Eosinophils # (Auto) 0.00 K/uL (0-0.5) 07/20/21 Basophils # (Auto) 0.01 K/uL (0-0.2) 07/20/21 Immature Granulocyte # (Auto) 0.09 K/uL (0.00-0.02) H 07/20/21 Na 138 mmol/L (136-145) 07/20/21 K 4.4 mmol/L (3.5-5.1) 07/20/21 Cl 105 mmol/L (98-107) 07/20/21 CO2 6 mmol/L (21-32) L* 07/20/21 Anion Gap 27 (3-11) H 07/20/21 BUN 52 mg/dl (6-23) H 07/20/21 Creatinine 2.33 mg/dl (0.6-1.4) H 07/20/21 Estimated GFR ( Amer) 40.5 ml/min 07/20/21 Estimated GFR (Non-Af Amer) 34.9 ml/min 07/20/21 BUN/Creatinine Ratio 22.3 (10-20) H 07/20/21 Glu 674 mg/dl (70-99(Fasting)) H* 07/20/21 Ca 8.5 mg/dl (8.5-10.1) 07/20/21 Phosphorus Level 4.5 mg/dl (2.5-4.9) 07/20/21 Total Bilirubin 0.4 mg/dl (0.2-1.0) 07/20/21 AST TNP 07/20/21 ALT 61 U/L (7-52) H 07/20/21 Alkaline Phosphatase 123 U/L (34-104) H 07/20/21 TP 8.7 gm/dl (6.0-8.3) H 07/20/21 Albumin 3.9 gm/dl (3.4-5.0) 07/20/21 Globulin 4.8 gm/dl (2.5-4.0) H 07/20/21 Albumin/Globulin Ratio 0.8 (0.9-2) L 07/20/21 Mg 3.4 mg/dl (1.7-2.4) H 07/20/21 12:34 07/20/21 Calcium Level 8.5 mg/dl (8.5-10.1) 07/20/21 15:38 07/20/21 Prothromb Time International Ratio 1.1 (0.9-1.1) 07/20/21 12:34 07/20/21 Venous Blood pH 7.06 (7.36-7.41) L 07/20/21 12:34 07/20/21 Venous Blood Partial Pressure CO2 30 mmHg (38-50) L 07/20/21 12:34 07/20/21 Venous Blood Partial Pressure O2 70 mmHg 07/20/21 12:34 07/20/21 Venous Blood HCO3 8 mmol/L 07/20/21 12:34 07/20/21 Venous Blood Base Excess -21.0 mEq/L 07/20/21 12:34 07/20/21 Venous Blood Oxygen Saturation 89.0 % 07/20/21 12:34 07/20/21 Blood Gas Barometric Pressure 731.9 mm/Hg 07/20/21 15:38 07/20/21 Arterial Blood pH 7.16 (7.35-7.45) L* 07/20/21 15:38 07/20/21 Arterial Blood Partial Pressure CO2 22 mmHg (35-46) L 07/20/21 15:38 07/20/21 Arterial Blood Partial Pressure O2 129 mmHg (80-95) H 07/20/21 15:38 07/20/21 Arterial Blood HCO3 8 mmol/L (19-24) L 07/20/21 15:38 07/20/21 Arterial Blood Base Excess -19.1 mEq/L (-9-1.8) L 07/20/21 15:38 07/20/21 Arterial Blood Oxygen Saturation 98.3 % (90-95) H 07/20/21 15:38 07/20/21 Blood Gas Oxygen Given ROOM AIR 07/20/21 15:38 07/20/21 Timi Test Pos (Pos) 07/20/21 15:38 07/20/21 Blood Gas Barometric Pressure 731.9 mm/Hg 07/20/21 15:38 07/20/21 Diagnostic Findings (Past 24 Hours) Chest X-Ray 07/20/21 12:18 XR chest 1V portable CLINICAL HISTORY: SEPSIS TECHNIQUE: Single frontal radiograph of the chest was obtained. Comparison: None available at the time of this dictation. FINDINGS: No lines and tubes are seen. The cardiomediastinal silhouette is normal. The lungs are clear. No evidence of pleural effusion or pneumothorax. IMPRESSION: No acute chest disease. ACT 112: Negative or not required by law. Electronically signed by: Joseph Townsend M.D. 07/20/2021 1:[address] 07/20/21 12:18 CT head/brain wo con CLINICAL HISTORY: 36 years-old Male with ams. Acutely altered mental status with weakness TECHNIQUE: Multiple axial CT images of the head were obtained without contrast. A dose lowering technique was utilized adhering to the principles of ALARA. CT DOSE: 2045.83 mGy.cm COMPARISON: None. FINDINGS: No acute intracranial hemorrhage, midline shift, intracranial mass, hydrocephalus, territorial ischemia or abnormal extra-axial collection. The calvarium is intact. There is a mild nonspecific dermal thickening noted within the scalp. The paranasal sinuses, mastoid air cells, and middle ear cavities are clear. IMPRESSION: No acute intracranial abnormality. ACT 112: Negative or not required by law. The above report was generated using voice recognition software. It may contain grammatical, syntax or spelling errors. Electronically signed by: Naveen Morillo M.D. 07/20/2021 2:04 PM Abdomen/Pelvis CT 07/20/21 12:49 CT abd pelvis wo con CLINICAL HISTORY: abd pain TECHNIQUE: Helical axial images of the abdomen and pelvis were obtained. Automated dose lowering techniques and/or adjustment according to patient size were utilized for this exam. This exam was performed without intravenous co ntrast. COMPARISON: None available at the time of this dictation. FINDINGS: Lower chest: No acute abnormality Liver: Hepatic steatosis is noted. Gallbladder and biliary tree: No calcified gallstones. Normal caliber wall. No intra- or extrahepatic biliary ductal dilation. Pancreas: Soft tissue stranding is seen about the pancreas. There is edema about the pancreatic head. Spleen: Unremarkable. Adrenals: Unremarkable. Kidneys and ureters: Unremarkable. Bladder: Wheat catheter is seen. Reproductive organs: Unremarkable. Bowel: Unremarkable. Lymph nodes Retroperitoneal: Unremarkable. Mesenteric: Unremarkable. Pelvic: Unremarkable. Peritoneum: Normal. Vessels: Unremarkable. Abdominal wall: Unremarkable. Bones: Unremarkable. IMPRESSION: The pancreatic edema and peripancreatic stranding compatible with acute pancreatitis. No evidence of pseudocyst or abscess formation. ACT 112: Negative or not required by law. Electronically signed by: Joseph Townsend M.D. 07/20/2021 2:26 PM I & O Totals 24 Hours 07/19/21 07/20/21 07/21/21 06:59 06:59 06:59 Intake Total 3330.667 / 3330.667 Output Total 2200 / 2200 Balance 1130.667 / 1130.667 Cumulative 07/20/21 11:59 thru 07/20/21 16:30 Intake Total 3330.667 Output Total 2200 Balance 1130.667 RT Ventilator Mngmt (Last Documented) Ventilator Ordered Settings Respiratory Rate 24 07/20/21 14:00 Ventilator - PT Measurements Respiratory Rate 24 Resident Activity Tracking Resident Involvement: Resident Care Provided Care Provided: Adult Hospital Medicine
--- NOTE | 2021-07-20 15:49 | History & Physical Report ---
Date of Service July 20, 2021 Assessment & Plan (1) DKA (diabetic ketoacidosis): Plan: #. DKA/New onset DM #. Anion gap metabolic acidosis #. Pancreatitis No prior history of diabetes per patient, feeling sick for 2 days with nausea, v omiting, increased thirst, increased urination. Found to have glucose of 1010 with bicarb of 7, pH of 7.06 on VBG, urinary ketones positive Admitting CXR: No acute findings Admitting CT Head: No acute findings Admitting CTAP: Suggestive of acute pancreatitis Patient oriented but lethargic/drowsy at bedside exam, rule out infection/blood culture sent/patient feeling cold/pro-Zach/admitting WBC elevated. Patient received a dose of cefepime in the ED. F/u for possibility of antibiotic until infection ruled out. Toxicology screen negative. Get A1c, lipase, ABG. N.p.o., IV fluid resuscitation, glycemic pharmacy consult, natural resources extension educator when appropriate, ICU level of care. Will defer use of bicarb drip to tax services intern. BMP every 4 hours, follow anion gap every 4 hours #. Electrolytes abnormality Admitting sodium of 130, corrected for hyperglycemia--> 145 Admitting POC potassium 5.3, continue to monitor potassium every 4 hours Monitor and replete according to DKA protocol #. FIONA Admitting BUN/creatinine: 55/3.38 Likely prerenal secondary to DKA Patient getting IV fluids, monitor BMP daily Expect to improve with IV hydration. DVT Px: Enoxaparin Full Code History of Present Illness Chief Complaint: Feeling sick for 2 days. Primary Care Provider: NO PCP 36-year-old gentleman with no significant PMH and no home meds who is traveling to the [facility] presented to our ED 07/20 with complaint of not feeling well for past 2 days, nausea, vomiting x2 prior to coming to hospital, increased thirst, increased urination and feeling confused/cold. Patient remains very thi rsty at bedside exam. Patient is drowsy but oriented x3 at bedside exam, denies any headache or dizziness, denies any belly pain but abdomen is tender on exam, denies any chest pain or funny sensation/heart racing, denies any open wound anywhere in the body. Patient denies use of tobacco/smoking/alcohol/recreational drugs. Patient denies personal history of cancer or blood clot or asthma or panc reatitis or other chronic medical condition. Patient denies family history of cancer or blood clot or diabetes. Full code Allergies Allergy/AdvReac Type Severity Reaction Status Date / Time No Known Allergies Allergy Unverified 07/20/21 13:48 Home Medications Medication Instructions Recorded Confirmed Type No Known Home Medications 07/20/21 07/20/21 History Past Med/Surg History Medical History (Updated 07/20/21 @ 17:11 by Lidya Art RN) No known health problems Surgical History (Updated 07/20/21 @ 17:11 by Lidya Art RN) No history of previous surgery Social History Smoking Status: Unknown if ever smoked Preferred Language: Tajik Communication Ability: Effective Case Management Assistant Required: No Beliefs That Will Affect Care: None Current Living Situation: Alone Feels Safe at Home: Yes Assistive Devices: None Review of Systems Review of Systems: Negative otherwise mentioned in HPI. Physical Exam Physical Exam: GENERAL: Drowsy/lethargic and oriented x3. NAD, on RA. Unable to cooperate fully, mildly restless HEENT: No pallor, no icterus. Pupils equal, round and reactive to light. Oral mucosa dry. NECK: No JVD, no neck masses. HEART: S1 and S2 heard. Regular rhythm. Tachycardic. No murmur, no gallop. RESPIRATORY SYSTEM: Normal AP diameter. No accessory muscle use. No wheezing, no crackles. ABDOMEN: Soft, bowel sounds present, +tender, no distention. CENTRAL NERVOUS SYSTEM: No facial droop. Speech is clear. Obeys simple commands. Moves extremities. EXTREMITIES: No edema, no erythema seen. UC w/ light yellow urine collection noted. No vertebral tenderness to palpation. Results & Data Results & Data ([facility]) Vital Signs (Past 12 Hours) Vital Signs Temp Pulse Resp BP Pulse Ox 07/20/21 15:00 34.1 C L 07/20/21 14:00 102 H 24 152/82 H 100 07/20/21 13:30 33.3 C L 07/20/21 13:00 94 H 22 156/82 H 99 07/20/21 12:15 34.7 C L 93 H 28 H 112/72 98 Code Status & VTE Plan VTE Prophylaxis Plan VTE Prophylaxis will be ordered: Yes
[2021-07-20 15:55] LABS: Base Excess ABG -19.1 mEq/L (-9-1.8); HCO3 ABG 8 mmol/L (19-24); Oxygen Saturation ABG 98.3 % (90-95); PCO2 ABG 22 mmHg (35-46); PO2 ABG 129 mmHg (80-95)
[2021-07-20 15:57] LABS: Allen Test Pos (Pos)
[2021-07-20 15:58] LABS: pH ABG 7.16 (7.35-7.45)
[2021-07-20] MEDS ORDERED: ENOXAPARIN INJ 40 MG/0.4 ML SYR SQ SCH (16:00)
[2021-07-20 16:09] LABS: Anion Gap 27 (3-11); BUN Creatinine Ratio 22.3 (10-20); Blood Urea Nitrogen 52 mg/dl (6-23); Calcium 8.5 mg/dl (8.5-10.1); Carbon Dioxide 6 mmol/L (21-32); Chloride 105 mmol/L (98-107); Est GFR (African American) 40.5 ml/min; Est GFR (Non-African American) 34.9 ml/min; Glucose 674 mg/dl (70-99(Fasting)); Potassium 4.4 mmol/L (3.5-5.1); Sodium 138 mmol/L (136-145)
[2021-07-20 16:17] LABS: Phosphorus 4.5 mg/dl (2.5-4.9)
[2021-07-20] MEDS: INSULIN ASPART PER UNIT SC SCH ×2 (16:38→20:39)
--- NOTE | 2021-07-20 16:42 | Billing Data ---
Date of Service July 20, 2021 Coding Level of Care Code Critical Care 1st - mins
[2021-07-20] MEDS ORDERED: ACETAMINOPHEN 325 MG TAB PO PRN (17:00)
[2021-07-20] MEDS: POT PHOSPHATE MONOBASIC W/ SOD TAB PO SCH ×2 (17:50→20:45)
[2021-07-20 17:56] LABS: Oxygen Saturation VBG 83.3 %; pH VBG 7.17 (7.36-7.41)
[2021-07-20] MEDS ORDERED: NORMOSOL-R 1,000 ML IV SCH (18:00)
[2021-07-20] MEDS ORDERED: PENDING 1/2NSS+40mEq KCL IVF SCH (18:00)
[2021-07-20] MEDS ORDERED: PENDING 1/2NSS+20mEq KCL IVF SCH (18:00)
[2021-07-20 18:28] LABS: Calcium 8.8 mg/dl (8.5-10.1); Creatinine Clr Calc Pharmacy 64.5 ml/min; Est GFR (African American) 42.4 ml/min; Est GFR (Non-African American) 36.6 ml/min
[2021-07-20] MEDS: SODIUM CHLOR 0.45% + 20MEQ KCL 20 MEQ/1,000 ML BAG IV SCH (19:49)
--- NOTE | 2021-07-20 20:12 | Pharmacy Report ---
Pharmacy Glycemic Short Note 2 - Date of Service July 20, 2021 - Glycemic Short BSG Results (Last 24 hours): 07/20/21 07/20/21 07/20/21 12:17 12:34 12:39 Glucose 1010 H* POC Glucose > 600 H* POC Glucose (other) > 700 H* Fasting Glucose 07/20/21 07/20/21 07/20/21 14:21 15:37 15:38 Glucose 674 H* POC Glucose > 600 H* > 600 H* POC Glucose (other) Fasting Glucose 07/20/21 07/20/21 07/20/21 17:35 17:36 18:56 Glucose POC Glucose 561 H* 453 H* POC Glucose (other) Fasting Glucose 559 H* 07/20/21 20:01 Glucose POC Glucose 380 H* POC Glucose (other) Fasting Glucose OUTPATIENT ANTIDIABETIC REGIMEN: * None - New diagnosis * HbA1c pending ASSESSMENT: * 36 yo admitted secondary to AMS. Found to have a BSG of 1010 mg/dL. Initial labs as follows: ABG 7.16, K 4.4, SCr 3.38, AG 30, CO2 7. * Pharmacy has been consulted to assist with inpatient management of DKA and ongoing glucose control. Patient is NPO at this time. * Received 4 L of fluids (30 mL/kg) in the ED. Started on an IV insulin drip at 10 units/hr with a 10 unit IV bolus. * Upon transfer to the floor, patient started on 1/2 NS + 20 KCl at 250 mL/hr. Most recent labs as follows: VB.17, K (hemolyzed), SCr 2.24, AG 24, CO2 9. * O2 saturations remain adequate on room air despite acidosis. * Will continue with insulin drip until BSGs in goal range of 150-250 mg/dL. Then, will add dextrose to fluids. Labs ordered q4h which is appropriate. PLAN FOR INPATIENT GLYCEMIC CONTROL: * Continue IV insulin drip throughout the night * Goal BSG 150-250 mg/dL * Novolog for carb coverage per insulin calculator
[2021-07-20] MEDS: HEPARIN SOD 5,000 UNIT/0.5 ML VIAL SQ SCH (20:13)
[2021-07-20 20:23] LABS: Base Excess VBG -10.6 mEq/L; HCO3 VBG 16 mmol/L; PCO2 VBG 40 mmHg (38-50); PO2 VBG 27 mmHg; pH VBG 7.23 (7.36-7.41)
[2021-07-20 20:24] LABS: Oxygen Saturation VBG < 60.0 %
[2021-07-20] MEDS: PENDING D5 1/2NS+20mEq KCL IVF SCH ×3 (20:40→23:19)
[2021-07-20] MEDS: PENDING D5 1/2NS+40mEq KCL IVF SCH ×3 (20:40→23:19)
[2021-07-20] MEDS: MoRPHine SULFATE 2 MG/ML CARP IV PRN (20:46)
[2021-07-20 20:59] LABS: BUN Creatinine Ratio 21.8 (10-20); Calcium 8.9 mg/dl (8.5-10.1); Creatinine Clr Calc Pharmacy 70.1 ml/min; Est GFR (Non-African American) 40.5 ml/min; Potassium 4.5 mmol/L (3.5-5.1)
[2021-07-21] MEDS: SODIUM CHLOR 0.45% + 20MEQ KCL 20 MEQ/1,000 ML BAG IV SCH (00:13)
[2021-07-21 00:19] LABS: Calcium 9.3 mg/dl (8.5-10.1); Creatinine Clr Calc Pharmacy 72.9 ml/min; Est GFR (African American) 49.3 ml/min; Est GFR (Non-African American) 42.5 ml/min; Potassium 3.9 mmol/L (3.5-5.1)
[2021-07-21] MEDS ORDERED: Nursing to Pharmacy Communication SCH (01:00)
[2021-07-21] MEDS: POTASSIUM CHLORIDE 40 MEQ in D5W AND 1/2NSS 1,000 ML IV SCH ×3 (01:16→11:55)
[2021-07-21] MEDS: MoRPHine SULFATE 2 MG/ML CARP IV PRN (01:27)
[2021-07-21] MEDS: PENDING D5 1/2NS+20mEq KCL IVF SCH (01:45)
[2021-07-21] MEDS: PENDING D5 1/2NS+40mEq KCL IVF SCH (01:45)
[2021-07-21] MEDS: INSULIN REGULAR 250 UNITS in SODIUM CHLORIDE 0.9% 247.5 ML IV SCH ×3 (04:19→15:38)
[2021-07-21 05:39] LABS: Hematocrit (blood only) 42.8 % (42-52); Hemoglobin 14.7 g/dL (14.0-18.0); Mean Corpuscular Hgb Conc 34.3 g/dL (32-36); Mean Corpuscular Volume 81.5 fL (80-100); Mean Platelet Volume 12.2 fL (7.4-10.4); Platelet Count 248 K/uL (130-400); RDW Coefficient of Variation 13.9 % (11.5-14.5); RDW Standard Deviation 41.2 fL (36.4-46.3); Red Blood Count 5.25 M/uL (4.7-6.1); White Blood Count 12.25 K/uL (4.8-10.8)
[2021-07-21 06:08] LABS: Creatinine Clr Calc Pharmacy 77.9 ml/min; Est GFR (African American) 53.1 ml/min; Est GFR (Non-African American) 45.8 ml/min; Magnesium 2.6 mg/dl (1.7-2.4); Phosphorus 1.8 mg/dl (2.5-4.9)
[2021-07-21 06:14] LABS: Thyroid Stimulating Hormone 0.161 uIu/ml (0.300-4.500)
[2021-07-21 06:46] LABS: T4 Free Thyroxine 0.81 ng/dl (0.61-1.60)
[2021-07-21] MEDS: INSULIN ASPART PER UNIT SC SCH ×4 (07:26→21:11)
[2021-07-21 07:42] LABS: Estimated Average Glucose 352 mg/dl; Hemoglobin A1C 13.9 % (4.5-5.6)
[2021-07-21 07:47] LABS: Base Excess VBG -3.9 mEq/L; HCO3 VBG 22 mmol/L; Oxygen Saturation VBG < 60.0 %; PCO2 VBG 44 mmHg (38-50); PO2 VBG 31 mmHg; pH VBG 7.32 (7.36-7.41)
--- NOTE | 2021-07-21 07:59 | Critical Care Progress Note ---
Date of Service July 21, 2021 Assessment & Plan (1) DKA (diabetic ketoacidosis): (2) Epigastric abdominal pain: (3) Pancreatitis: Plan: ICU Assessment and Plans Reason Critically Ill: 36-year-old male here with no PMHx who presented with 'feeling unwell', nausea, polydipsia and who was admitted for DKA. Neuro - encephalopathy likely 2/2 to DKA, will continue to monitor CAM ICU: Positive Sedation: none Analgesia: morphine, tylenol Cardiac - elevated HR noted, likely secondary to DKA and pancreatitis, continue IVF and pain management and continue to monitor elevated BP resolved Respiratory - negative carboxyhemoglobin tachypnea noted likely 2/2 to DKA, continue to monitor GI - npo acute pancreatitis per abd CT, lipase 2547, abd pain resolved RENAL/LYTES - Patient in DKA glucose 1010-->127 Vbg 7.32/44 Na 150, IVF switched to 1/2 NSS with D5w K 4.5, recieved 120meq K overnight phos 1.8, recieving Kphos tabs QID bicarb 19, anion gap 12 insulin drip 8U/hr BMP and VBg q4 continue repleting IVF - wheat in place, No concerns at this time. I/O: +1888, 6275 urine ENDO - insulin drip 8U/hr BMP and VBg q4 perinatal educator ordered Low TSH noted 0.161, normal T4 HEME - Stable H&H. Will monitor for any drops in the setting of Heparin gtt ID - No concerns for infection at this point. INTEGUMENTARY - skin warm dry intact hypothermia resolved LINES/IV ACCESS - PIVs intact. Wheat intact DVT PROPHYLAXIS - Heparin gtt. Thank you for allowing us to be part of this patient's care. Please refer to Dr. Griffin's documentation for any further recommendations. Admission and Anticipated Discharge Date Admission Date: July 20, 2021 Supervising Physician Co-Signing Physician Notes Patient seen and examined. EMR reviewed. Discussed on multidisciplinary rounds and with family practice resident. Agree with assessment plan as noted. I independently examined the patient. He is more awake and alert. He is conversant and able to answer questions. His Kussmaul's breathing has improved. He denies abdominal pain. Abdominal exam is benign. Remains slightly tachycardic. Given the patient's tachycardia, I think he would benefit from additional crystalloid. We will give an additional 2 L of Normosol nail. Increase his D5 half-normal to 250 cc an hour. Continue insulin drip but anticipate that we should be able to transition to sliding scale insulin with his next BMP in 4 hours. Awaiting family living educator. He will need close outpatient follow-up. Case management involved in coordinating care for this patient. Continue electrolyte replacement. Once he goes to subcu insulin can advance diet to carb controlled. Wheat catheter was removed today. Anticipate the patient can likely transfer to the floor later today once he is off the insulin infusion. Subjective Patient seen seating on chair by bedside, calm comfortable cooperative. He was not able to sleep overnight. Patient denies any SOB nausea, states he has some lightheadedness, has not tried to walk yet. Wheat in place. Patient denies any abd pain at this time. He is oriented to person and time, understood he was in the hospital did not know which one. Patient did not maintain eye contact, did look up when his name was called. No other events overnight. Review of Systems Review of Systems: Positive lightheadedness Negative fever chills Negative headache dizziness Negative chest pain palpitations SOB Negative nausea vomitting diarrhea constipation Negative numbness tingling rash swelling Physical Exam Constitutional: + obese, cooperative and comfortable Eyes: PERRL, conjunctivae normal, anicteric sclerae ENMT: external ear and nose normal, oropharynx normal Neck: trachea midline, no thyromegaly Respiratory: normal respiratory effort and + tachypneic Auscultation: + crackles (on RLL) Cardiovascular: Rate/Rhythm: regular rhythm and + tachycardic Heart Sounds: normal S1 and normal S2 Extremities: normal capillary refill; no edema Chest (Breasts): Chest: normal inspection of chest Gastrointestinal (Abdomen): Inspection/Auscultation: abdomen normal to inspection Percussion/Palpation: abdomen soft; abdomen nontender Skin: no rashes, warm and dry Neurologic: PERRL, EOMI, accommodation nl, no face palsy, no dysarthria CN's II-XI intact bilaterally Psychiatric: Orientation: oriented to person and oriented to time Genitourinary: Wheat noted Results & Data Results & Data ([facility]) Vital Signs (Past 12 Hours) Vital Signs Temp Pulse Resp BP Pulse Ox 07/21/21 07:30 123 H 33 H 97 07/21/21 07:00 123 H 31 H 106/82 94 07/21/21 06:30 126 H 16 95 07/21/21 06:00 126 H 31 H 128/79 95 07/21/21 05:30 130 H 17 97 07/21/21 05:23 132 H 25 H 128/76 95 07/21/21 05:00 125 H 14 94 07/21/21 04:01 129 H 32 H 139/89 07/21/21 04:00 132 H 17 07/21/21 03:30 130 H 19 07/21/21 03:19 36.8 C 134 H 34 H 128/80 07/21/21 03:00 133 H 31 H 07/21/21 02:30 137 H 28 H 96 07/21/21 02:02 135 H 36 H 97/66 L 94 07/21/21 02:00 133 H 38 H 07/21/21 01:30 134 H 26 H 07/21/21 01:00 132 H 22 07/21/21 00:30 136 H 39 H 07/21/21 00:02 132 H 38 H 132/83 07/21/21 00:00 133 H 33 H 100 07/20/21 23:59 129 H 07/20/21 23:30 134 H 20 99 07/20/21 23:00 36.5 C 129 H 2 L 138/88 98 07/20/21 22:30 127 H 34 H 100 07/20/21 22:01 130 H 24 134/83 07/20/21 22:00 127 H 28 H 100 07/20/21 21:30 123 H 43 H 100 07/20/21 21:24 120 H 07/20/21 21:15 123 H 38 H 100 07/20/21 21:00 116 H 31 H 135/95 98 07/20/21 20:45 117 H 39 H 99 07/20/21 20:30 123 H 30 H 96 07/20/21 20:15 118 H 21 100 07/20/21 20:00 116 H 33 H 130/99 98 Diagnostic Findings Laboratory Results WBC 12.25 K/uL (4.8-10.8) H 07/21/21 04:02 RBC 5.25 M/uL (4.7-6.1) 07/21/21 04:02 Hgb 14.7 g/dL (14.0-18.0) 07/21/21 04:02 POC Hgb 17.0 g/dl (14.0-18.0) 07/20/21 12:39 Hct 42.8 % (42-52) 07/21/21 04:02 POC Hct 50 % (42-52) 07/20/21 12:39 MCV 81.5 fL (80-100) 07/21/21 04:02 MCH 28.0 pg (25-34) 07/21/21 04:02 MCHC 34.3 g/dL (32-36) 07/21/21 04:02 RDW Std Deviation 41.2 fL (36.4-46.3) 07/21/21 04:02 RDW Coeff of Patrizia 13.9 % (11.5-14.5) 07/21/21 04:02 Plt Count 248 K/uL (130-400) 07/21/21 04:02 MPV 12.2 fL (7.4-10.4) H 07/21/21 04:02 Immature Gran % (Auto) 0.5 % 07/20/21 14:13 Neut % (Auto) 88.6 % 07/20/21 14:13 Lymph % (Auto) 8.5 % 07/20/21 14:13 Hendry % (Auto) 2.3 % 07/20/21 14:13 Eos % (Auto) 0.0 % 07/20/21 14:13 Baso % (Auto) 0.1 % 07/20/21 14:13 Neut # (Auto) 14.54 K/uL (1.4-6.5) H 07/20/21 14:13 Lymph # (Auto) 1.39 K/uL (1.2-3.4) 07/20/21 14:13 Hendry # (Auto) 0.37 K/uL (0.11-0.59) 07/20/21 14:13 Eos # (Auto) 0.00 K/uL (0-0.5) 07/20/21 14:13 Baso # (Auto) 0.01 K/uL (0-0.2) 07/20/21 14:13 Immature Gran # (Auto) 0.09 K/uL (0.00-0.02) H 07/20/21 14:13 Absolute Nucleated RBC Cancelled 07/20/21 12:34 Nucleated RBC % (auto) Cancelled 07/20/21 12:34 Neutrophils % (Manual) Cancelled 07/20/21 12:34 Band Neutrophils % Cancelled 07/20/21 12:34 Lymphocytes % (Manual) Cancelled 07/20/21 12:34 Prolymphocyte % Cancelled 07/20/21 12:34 Reactive Lymphs % (Man) Cancelled 07/20/21 12:34 Monocytes % (Manual) Cancelled 07/20/21 12:34 Eosinophils % (Manual) Cancelled 07/20/21 12:34 Basophils % (Manual) Cancelled 07/20/21 12:34 Metamyelocytes % (Man) Cancelled 07/20/21 12:34 Myelocytes % (Man) Cancelled 07/20/21 12:34 Promyelocytes % (Man) Cancelled 07/20/21 12:34 Blast Cells % (Manual) Cancelled 07/20/21 12:34 Plasma Cell % (Manual) Cancelled 07/20/21 12:34 Other Cells % Cancelled 07/20/21 12:34 Nucleated RBC % Cancelled 07/20/21 12:34 Neutrophils # (Manual) Cancelled 07/20/21 12:34 Band Neutrophils # Cancelled 07/20/21 12:34 Total Absolute Neuts Cancelled 07/20/21 12:34 Lymphocytes # (Manual) Cancelled 07/20/21 12:34 Prolymphocyte # Cancelled 07/20/21 12:34 Reactive Lymphs # Cancelled 07/20/21 12:34 Total Abs Lymphocytes Cancelled 07/20/21 12:34 Monocytes # (Manual) Cancelled 07/20/21 12:34 Eosinophils # (Manual) Cancelled 07/20/21 12:34 Basophils # (Manual) Cancelled 07/20/21 12:34 Metamyelocytes # (Man) Cancelled 07/20/21 12:34 Myelocytes # (Manual) Cancelled 07/20/21 12:34 Promyelocytes # (Man) Cancelled 07/20/21 12:34 Blast Cells # (Man) Cancelled 07/20/21 12:34 Plasma Cell # (Manual) Cancelled 07/20/21 12:34 Other Cells # Cancelled 07/20/21 12:34 Nucleated RBCs # (Man) Cancelled 07/20/21 12:34 Hypersegmented Neuts Cancelled 07/20/21 12:34 Hyposegmented Neuts Cancelled 07/20/21 12:34 Hypogranular Neuts Cancelled 07/20/21 12:34 Large Granular Lymphs Cancelled 07/20/21 12:34 # Lrg Granular Lymphs Cancelled 07/20/21 12:34 Hairy Cells Cancelled 07/20/21 12:34 Smudge Cells Cancelled 07/20/21 12:34 Toxic Granulation Cancelled 07/20/21 12:34 Toxic Vacuolation Cancelled 07/20/21 12:34 Dohle Bodies Cancelled 07/20/21 12:34 Qasim Rods Cancelled 07/20/21 12:34 Platelet Estimate Cancelled 07/20/21 12:34 Hypogranular Platelets Cancelled 07/20/21 12:34 Clumped Platelets Cancelled 07/20/21 12:34 Giant Platelets Cancelled 07/20/21 12:34 Platelet Satelliting Cancelled 07/20/21 12:34 RBC Morphology Cancelled 07/20/21 12:34 Polychromasia Cancelled 07/20/21 12:34 Hypochromasia Cancelled 07/20/21 12:34 Poikilocytosis Cancelled 07/20/21 12:34 Basophilic Stippling Cancelled 07/20/21 12:34 Anisocytosis Cancelled 07/20/21 12:34 Microcytosis Cancelled 07/20/21 12:34 Macrocytosis Cancelled 07/20/21 12:34 Spherocytes Cancelled 07/20/21 12:34 Pappenheimer Bodies Cancelled 07/20/21 12:34 Sickle Cells Cancelled 07/20/21 12:34 Target Cells Cancelled 07/20/21 12:34 Tear Drop Cells Cancelled 07/20/21 12:34 Ovalocytes Cancelled 07/20/21 12:34 Stomatocytes Cancelled 07/20/21 12:34 Hayward-Huetter Bodies Cancelled 07/20/21 12:34 Echinocytes Cancelled 07/20/21 12:34 Acanthocytes (Spur) Cancelled 07/20/21 12:34 Rouleaux Cancelled 07/20/21 12:34 RBC Agglutinates Cancelled 07/20/21 12:34 Schistocytes Cancelled 07/20/21 12:34 RBC Morph Comment Cancelled 07/20/21 12:34 Sezary Cell Cancelled 07/20/21 12:34 PT 11.3 Seconds (9.0-12.0) 07/20/21 12:34 INR 1.1 (0.9-1.1) 07/20/21 12:34 APTT 21.4 Seconds (21.0-31.0) 07/20/21 12:34 PTT Ratio 0.8 07/20/21 12:34 ABG pH 7.16 (7.35-7.45) L* 07/20/21 15:38 ABG pCO2 22 mmHg (35-46) L 07/20/21 15:38 ABG pO2 129 mmHg (80-95) H 07/20/21 15:38 ABG HCO3 8 mmol/L (19-24) L 07/20/21 15:38 ABG O2 Saturation 98.3 % (90-95) H 07/20/21 15:38 ABG Base Excess -19.1 mEq/L (-9-1.8) L 07/20/21 15:38 Timi Test Pos (Pos) 07/20/21 15:38 VBG pH 7.32 (7.36-7.41) L 07/21/21 07:36 VBG pCO2 44 mmHg (38-50) 07/21/21 07:36 VBG pO2 31 mmHg 07/21/21 07:36 VBG HCO3 22 mmol/L 07/21/21 07:36 VBG O2 Saturation < 60.0 % 07/21/21 07:36 VBG Base Excess -3.9 mEq/L 07/21/21 07:36 Carboxyhemoglobin 0.0 % THgb 07/20/21 17:36 Barometric Pressure 736.0 mm/Hg 07/21/21 07:36 Oxygen Given ROOM AIR 07/20/21 15:38 POC Sodium 133 mmol/L (135-144) L 07/20/21 12:39 Sodium 150 mmol/L (136-145) H 07/21/21 04:02 POC Potassium 5.3 mmol/L (3.3-5.0) H 07/20/21 12:39 Potassium 4.5 mmol/L (3.5-5.1) 07/21/21 06:18 POC Chloride 104 mmol/L (101-112) 07/20/21 12:39 Chloride 119 mmol/L (98-107) H 07/21/21 04:02 Carbon Dioxide 19 mmol/L (21-32) L 07/21/21 04:02 POC Total CO2 9 mmol/L (24-31) L* 07/20/21 12:39 Anion Gap 12 (3-11) H 07/21/21 04:02 POC Anion Gap 25.0 mmol/L (16-25) 07/20/21 12:39 POC BUN 75 mg/dl (7-18) H 07/20/21 12:39 BUN 41 mg/dl (6-23) H 07/21/21 04:02 Creatinine 1.86 mg/dl (0.6-1.4) H 07/21/21 04:02 POC Creatinine 3.1 mg/dl (0.6-1.3) H 07/20/21 12:39 Est Cr Clr Drug Dosing 77.9 ml/min 07/21/21 04:02 Est GFR ( Amer) 53.1 ml/min 07/21/21 04:02 Est GFR (Non-Af Amer) 45.8 ml/min 07/21/21 04:02 BUN/Creatinine Ratio 21.8 (10-20) H 07/20/21 20:02 Glucose 406 mg/dl (70-99(Fasting)) H* 07/20/21 20:02 POC Glucose 127 mg/dl (70-99) H 07/21/21 07:17 POC Glucose (other) > 700 mg/dl (70-99) H* 07/20/21 12:39 Fasting Glucose 170 mg/dl (70-99) H 07/21/21 04:02 Estimat Average Glucose 352 mg/dl 07/20/21 15:38 Hemoglobin A1c 13.9 % (4.5-5.6) H 07/20/21 15:38 Lactate 1.9 mmol/L (0.4-2.0) 07/20/21 12:34 Calcium 9.0 mg/dl (8.5-10.1) 07/21/21 04:02 POC Ioniz Calcium Marian 1.07 mmol/l (1.12-1.32) L 07/20/21 12:39 Phosphorus 1.8 mg/dl (2.5-4.9) L D 07/21/21 04:02 Magnesium 2.6 mg/dl (1.7-2.4) H 07/21/21 04:02 Total Bilirubin 0.4 mg/dl (0.2-1.0) 07/20/21 12:34 AST TNP 07/20/21 12:34 ALT 61 U/L (7-52) H 07/20/21 12:34 Alkaline Phosphatase 123 U/L (34-104) H 07/20/21 12:34 Total Protein 8.7 gm/dl (6.0-8.3) H 07/20/21 12:34 Albumin 3.9 gm/dl (3.4-5.0) 07/20/21 12:34 Globulin 4.8 gm/dl (2.5-4.0) H 07/20/21 12:34 Albumin/Globulin Ratio 0.8 (0.9-2) L 07/20/21 12:34 Lipase 2547 U/L (11-82) H 07/20/21 15:38 Procalcitonin 1.07 ng/ml (0-0.5) H 07/20/21 15:41 TSH 0.161 uIu/ml (0.300-4.500) L 07/21/21 04:02 Free T4 0.81 ng/dl (0.61-1.60) 07/21/21 04:02 Urine Color Yellow 07/20/21 13:00 Urine Appearance Clear (Clear) 07/20/21 13:00 Urine pH 5.0 (4.5-7.5) 07/20/21 13:00 Ur Specific [place] 1.027 (1.000-1.030) 07/20/21 13:00 Urine Protein 2+ (Negative) H 07/20/21 13:00 Urine Glucose (UA) 3+ (Negative) H 07/20/21 13:00 Urine Ketones 1+ (Negative) H 07/20/21 13:00 Urine Blood 3+ (Negative) H 07/20/21 13:00 Urine Nitrite Negative (Negative) 07/20/21 13:00 Urine Bilirubin Negative (Negative) 07/20/21 13:00 Urine Urobilinogen Negative (Negative) 07/20/21 13:00 Ur Leukocyte Esterase Negative (Negative) 07/20/21 13:00 Urine WBC (Auto) 5-10 /hpf (0-5) H 07/20/21 13:00 Urine RBC (Auto) 0-4 /hpf (0-4) 07/20/21 13:00 U Hyaline Cast (Auto) 10-30 /lpf (0-5) H 07/20/21 13:00 U Epithel Cells (Auto) >30 /lpf (0-5) H 07/20/21 13:00 Urine Bacteria (Auto) 1+ (Negative) H 07/20/21 13:00 Granular Casts 1-5 /lpf (0) H 07/20/21 13:00 Urine Yeast Not Reportable 07/20/21 13:00 Nasal Screen MRSA (PCR) Negative (Negative) 07/20/21 17:40 Urine Opiates Screen Neg (Neg) 07/20/21 13:00 Ur Methadone, Qual Neg (Neg) 07/20/21 13:00 Urine Barbiturates Neg (Neg) 07/20/21 13:00 Ur Phencyclidine (PCP) Neg (Neg) 07/20/21 13:00 U Amphetamin/Meth Scrn Neg (Neg) 07/20/21 13:00 MDMA (Ecstasy) Screen Neg (Neg) 07/20/21 13:00 U Benzodiazepines Scrn Neg (Neg) 07/20/21 13:00 Ur Cocaine Metabolite Neg (Neg) 07/20/21 13:00 U Marijuana (THC) Screen Neg (Neg) 07/20/21 13:00 SARS-CoV-2, RNA, NAAT NEGATIVE (NEGATIVE) 07/20/21 14:50 Impressions Chest X-Ray 07/20/21 12:18 XR chest 1V portable CLINICAL HISTORY: SEPSIS TECHNIQUE: Single frontal radiograph of the chest was obtained. Comparison: None available at the time of this dictation. FINDINGS: No lines and tubes are seen. The cardiomediastinal silhouette is normal. The lungs are clear. No evidence of pleural effusion or pneumothorax. IMPRESSION: No acute chest disease. ACT 112: Negative or not required by law. Electronically signed by: Joseph Townsend M.D. 07/20/2021 1:[address] 07/20/21 12:18 CT head/brain wo con CLINICAL HISTORY: 36 years-old Male with ams. Acutely altered mental status with weakness TECHNIQUE: Multiple axial CT images of the head were obtained without contrast. A dose lowering technique was utilized adhering to the principles of ALARA. CT DOSE: 2045.83 mGy.cm COMPARISON: None. FINDINGS: No acute intracranial hemorrhage, midline shift, intracranial mass, hydrocephalus, territorial ischemia or abnormal extra-axial collection. The calvarium is intact. There is a mild nonspecific dermal thickening noted within the scalp. The paranasal sinuses, mastoid air cells, and middle ear cavities are clear. IMPRESSION: No acute intracranial abnormality. ACT 112: Negative or not required by law. The above report was generated using voice recognition software. It may contain grammatical, syntax or spelling errors. Electronically signed by: Naveen Morillo M.D. 07/20/2021 2:04 PM Abdomen/Pelvis CT 07/20/21 12:49 CT abd pelvis wo con CLINICAL HISTORY: abd pain TECHNIQUE: Helical axial images of the abdomen and pelvis were obtained. Automated dose lowering techniques and/or adjustment according to patient size were utilized for this exam. This exam was performed without intravenous contrast. COMPARISON: None available at the time of this dictation. FINDINGS: Lower chest: No acute abnormality Liver: Hepatic steatosis is noted. Gallbladder and biliary tree: No calcified gallstones. Normal caliber wall. No intra- or extrahepatic biliary ductal dilation. Pancreas: Soft tissue stranding is seen about the pancreas. There is edema about the pancreatic head. Spleen: Unremarkable. Adrenals: Unremarkable. Kidneys and ureters: Unremarkable. Bladder: Wheat catheter is seen. Reproductive organs: Unremarkable. Bowel: Unremarkable. Lymph nodes Retroperitoneal: Unremarkable. Mesenteric: Unremarkable. Pelvic: Unremarkable. Peritoneum: Normal. Vessels: Unremarkable. Abdominal wall: Unremarkable. Bones: Unremarkable. IMPRESSION: The pancreatic edema and peripancreatic stranding compatible with acute pancreatitis. No evidence of pseudocyst or abscess formation. ACT 112: Negative or not required by law. Electronically signed by: Joseph Townsend M.D. 07/20/2021 2:26 PM Medications Administered Current Inpatient Medications Acetaminophen (Acetaminophen 325 Mg Tab) 650 mg PO Q4H PRN PRN Reason: Fever/Mild Pain (Pain 1,2,3) Stop: 08/19/21 16:59 Dextrose (Dextrose 50% 50 Ml Syringe) 25 - 50 ml IV UD PRN; Protocol PRN Reason: Hypoglycemia Protocol Stop: 08/19/21 12:45 Glucagon (Glucagon For Inj 1 Mg Vial) 1 mg SQ UD PRN; Protocol PRN Reason: Hypoglycemia Protocol Stop: 08/19/21 12:45 Glucose (Glucose 10 Tabs/Tube) 4 - 8 tabs PO UD PRN; Protocol PRN Reason: Hypoglycemia Protocol Stop: 08/19/21 12:45 Glucose (Glucose 40% Gel 15 Gm Tube) 15 - 30 gm PO UD PRN; Protocol PRN Reason: Hypoglycemia Protocol Stop: 08/19/21 12:45 Heparin Sodium (Porcine) (Heparin Sod 5,000 Unit/0.5 Ml Vial) 5,000 units SQ Q12 CONSTANCE Stop: 08/19/21 20:59 Last Admin: 07/20/21 20:13 Dose: 5,000 units Documented by: Insulin Human Regular 250 (units/ Sodium Chloride) 250 mls @ 8 mls/hr IV .Q24H [facility]; Protocol Stop: 08/19/21 12:59 Last Admin: 07/21/21 07:26 Dose: Not Given Documented by: Potassium Chloride 40 meq/ (Dextrose/Sodium Chloride) 1,020 mls @ 200 mls/hr IV .Q5H6M [facility] Stop: 08/20/21 01:14 Last Admin: 07/21/21 06:12 Dose: 200 mls/hr Documented by: Insulin Aspart (Insulin Aspart Per Unit) 0 units SC ACHS [facility] Stop: 08/20/21 11:29 Miscellaneous (Carbohydrates For Hypoglycemia ) 15 - 30 gm PO UD PRN PRN Reason: Hypoglycemia Protocol Stop: 08/19/21 12:45 Miscellaneous Information (Pharmacy Glycemic Mgmt Consult) 1 ea N/A UD PRN PRN Reason: Consult Stop: 08/19/21 15:20 Morphine Sulfate (Morphine Sulfate 2 Mg/Ml Carp) 2 mg IV Q4H PRN PRN Reason: Pain Stop: 08/03/21 20:22 Last Admin: 07/21/21 01:27 Dose: 2 mg Documented by: Ondansetron HCl (Ondansetron Inj 2 Mg/Ml 2 Ml Vial) 4 mg IV Q6H PRN PRN Reason: Nausea Stop: 08/19/21 16:39 Potassium Phosphate (Pot Phosphate Monobasic W/ Sod Tab) 1 tab PO QID CONSTANCE Stop: 08/19/21 16:59 Last Admin: 07/21/21 08:00 Dose: 1 tab Documented by: Critical Care Results & Data Vital Signs (Past 12 Hours) Vital Signs Temp Pulse Resp BP Pulse Ox 07/21/21 07:30 123 H 33 H 97 07/21/21 07:00 123 H 31 H 106/82 94 07/21/21 06:30 126 H 16 95 07/21/21 06:00 126 H 31 H 128/79 95 07/21/21 05:30 130 H 17 97 07/21/21 05:23 132 H 25 H 128/76 95 07/21/21 05:00 125 H 14 94 07/21/21 04:01 129 H 32 H 139/89 07/21/21 04:00 132 H 17 07/21/21 03:30 130 H 19 07/21/21 03:19 36.8 C 134 H 34 H 128/80 07/21/21 03:00 133 H 31 H 07/21/21 02:30 137 H 28 H 96 07/21/21 02:02 135 H 36 H 97/66 L 94 07/21/21 02:00 133 H 38 H 07/21/21 01:30 134 H 26 H 07/21/21 01:00 132 H 22 07/21/21 00:30 136 H 39 H 07/21/21 00:02 132 H 38 H 132/83 07/21/21 00:00 133 H 33 H 100 07/20/21 23:59 129 H 07/20/21 23:30 134 H 20 99 07/20/21 23:00 36.5 C 129 H 2 L 138/88 98 07/20/21 22:30 127 H 34 H 100 07/20/21 22:01 130 H 24 134/83 07/20/21 22:00 127 H 28 H 100 07/20/21 21:30 123 H 43 H 100 07/20/21 21:24 120 H 07/20/21 21:15 123 H 38 H 100 07/20/21 21:00 116 H 31 H 135/95 98 07/20/21 20:45 117 H 39 H 99 07/20/21 20:30 123 H 30 H 96 03/28/22 20:15 118 H 21 100 Lab & Micro Results (Past 24 Hours) RBC 5.25 M/uL (4.7-6.1) 07/21/21 WBC 12.25 K/uL (4.8-10.8) H 07/21/21 Hgb 14.7 g/dL (14.0-18.0) 07/21/21 Hct 42.8 % (42-52) 07/21/21 MCV 81.5 fL (80-100) 07/21/21 MCH 28.0 pg (25-34) 07/21/21 MCHC 34.3 g/dL (32-36) 07/21/21 RDW Standard Deviation 41.2 fL (36.4-46.3) 07/21/21 RDW Coefficient of Variation 13.9 % (11.5-14.5) 07/21/21 Plt Count 248 K/uL (130-400) 07/21/21 MPV 12.2 fL (7.4-10.4) H 07/21/21 Neutrophils (%) (Auto) 88.6 % 07/20/21 Lymphocytes (%) (Auto) 8.5 % 07/20/21 Monocytes # (Auto) 0.37 K/uL (0.11-0.59) 07/20/21 Eosinophils # (Auto) 0.00 K/uL (0-0.5) 07/20/21 Immature Granulocyte % (Auto) 0.5 % 07/20/21 Neutrophils # (Auto) 14.54 K/uL (1.4-6.5) H 07/20/21 Lymphocytes # (Auto) 1.39 K/uL (1.2-3.4) 07/20/21 Monocytes # (Auto) 0.37 K/uL (0.11-0.59) 07/20/21 Eosinophils # (Auto) 0.00 K/uL (0-0.5) 07/20/21 Basophils # (Auto) 0.01 K/uL (0-0.2) 07/20/21 Immature Granulocyte # (Auto) 0.09 K/uL (0.00-0.02) H 07/20/21 Na 150 mmol/L (136-145) H 07/21/21 K 4.9 mmol/L (3.5-5.1) 07/21/21 Cl 122 mmol/L (98-107) H 07/21/21 CO2 21 mmol/L (21-32) 07/21/21 Anion Gap TNP 07/21/21 BUN 37 mg/dl (6-23) H 07/21/21 Creatinine 1.87 mg/dl (0.6-1.4) H 07/21/21 Estimated GFR ( Amer) 52.8 ml/min 07/21/21 Estimated GFR (Non-Af Amer) 45.5 ml/min 07/21/21 BUN/Creatinine Ratio 21.8 (10-20) H 07/20/21 Glu 406 mg/dl (70-99(Fasting)) H* 07/20/21 Ca 8.8 mg/dl (8.5-10.1) 07/21/21 Phosphorus Level 1.8 mg/dl (2.5-4.9) L 07/21/21 Total Bilirubin 0.4 mg/dl (0.2-1.0) 07/20/21 AST TNP 07/20/21 ALT 61 U/L (7-52) H 07/20/21 Alkaline Phosphatase 123 U/L (34-104) H 07/20/21 TP 8.7 gm/dl (6.0-8.3) H 07/20/21 Albumin 3.9 gm/dl (3.4-5.0) 07/20/21 Globulin 4.8 gm/dl (2.5-4.0) H 07/20/21 Albumin/Globulin Ratio 0.8 (0.9-2) L 07/20/21 Mg 2.6 mg/dl (1.7-2.4) H 07/21/21 04:02 07/21/21 Calcium Level 8.8 mg/dl (8.5-10.1) 07/21/21 07:36 07/21/21 Prothromb Time International Ratio 1.1 (0.9-1.1) 07/20/21 12:34 07/20/21 Venous Blood pH 7.32 (7.36-7.41) L 07/21/21 07:36 07/21/21 Venous Blood Partial Pressure CO2 44 mmHg (38-50) 07/21/21 07:36 07/21/21 Venous Blood Partial Pressure O2 31 mmHg 07/21/21 07:36 07/21/21 Venous Blood HCO3 22 mmol/L 07/21/21 07:36 07/21/21 Venous Blood Base Excess -3.9 mEq/L 07/21/21 07:36 07/21/21 Venous Blood Oxygen Saturation < 60.0 % 07/21/21 07:36 07/21/21 Blood Gas Barometric Pressure 736.0 mm/Hg 07/21/21 07:36 07/21/21 Arterial Blood pH 7.16 (7.35-7.45) L* 07/20/21 15:38 07/20/21 Arterial Blood Partial Pressure CO2 22 mmHg (35-46) L 07/20/21 15:38 07/20/21 Arterial Blood Partial Pressure O2 129 mmHg (80-95) H 07/20/21 15:38 07/20/21 Arterial Blood HCO3 8 mmol/L (19-24) L 07/20/21 15:38 07/20/21 Arterial Blood Base Excess -19.1 mEq/L (-9-1.8) L 07/20/21 15:38 07/20/21 Arterial Blood Oxygen Saturation 98.3 % (90-95) H 07/20/21 15:38 07/20/21 Blood Gas Oxygen Given ROOM AIR 07/20/21 15:38 07/20/21 Timi Test Pos (Pos) 07/20/21 15:38 07/20/21 Blood Gas Barometric Pressure 736.0 mm/Hg 07/21/21 07:36 07/21/21 Diagnostic Findings (Past 24 Hours) Chest X-Ray 07/20/21 12:18 XR chest 1V portable CLINICAL HISTORY: SEPSIS TECHNIQUE: Single frontal radiograph of the chest was obtained. Comparison: None available at the time of this dictation. FINDINGS: No lines and tubes are seen. The cardiomediastinal silhouette is normal. The lungs are clear. No evidence of pleural effusion or pneumothorax. IMPRESSION: No acute chest disease. ACT 112: Negative or not required by law. Electronically signed by: Joseph Townsend M.D. 07/20/2021 1:[address] 07/20/21 12:18 CT head/brain wo con CLINICAL HISTORY: 36 years-old Male with ams. Acutely altered mental status with weakness TECHNIQUE: Multiple axial CT images of the head were obtained without contrast. A dose lowering technique was utilized adhering to the principles of ALARA. CT DOSE: 2045.83 mGy.cm COMPARISON: None. FINDINGS: No acute intracranial hemorrhage, midline shift, intracranial mass, hydrocephalus, territorial ischemia or abnormal extra-axial collection. The calvarium is intact. There is a mild nonspecific dermal thickening noted within the scalp. The paranasal sinuses, mastoid air cells, and middle ear cavities are clear. IMPRESSION: No acute intracranial abnormality. ACT 112: Negative or not required by law. The above report was generated using voice recognition software. It may contain grammatical, syntax or spelling errors. Electronically signed by: Naveen Morillo M.D. 07/20/2021 2:04 PM Abdomen/Pelvis CT 07/20/21 12:49 CT abd pelvis wo con CLINICAL HISTORY: abd pain TECHNIQUE: Helical axial images of the abdomen and pelvis were obtained. Automated dose lowering techniques and/or adjustment according to patient size were utilized for this exam. This exam was performed without intravenous contrast. COMPARISON: None available at the time of this dictation. FINDINGS: Lower chest: No acute abnormality Liver: Hepatic steatosis is noted. Gallbladder and biliary tree: No calcified gallstones. Normal caliber wall. No intra- or extrahepatic biliary ductal dilation. Pancreas: Soft tissue stranding is seen about the pancreas. There is edema about the pancreatic head. Spleen: Unremarkable. Adrenals: Unremarkable. Kidneys and ureters: Unremarkable. Bladder: Wheat catheter is seen. Reproductive organs: Unremarkable. Bowel: Unremarkable. Lymph nodes Retroperitoneal: Unremarkable. Mesenteric: Unremarkable. Pelvic: Unremarkable. Peritoneum: Normal. Vessels: Unremarkable. Abdominal wall: Unremarkable. Bones: Unremarkable. IMPRESSION: The pancreatic edema and peripancreatic stranding compatible with acute pancreatitis. No evidence of pseudocyst or abscess formation. ACT 112: Negative or not required by law. Electronically signed by: Joseph Townsend M.D. 07/20/2021 2:26 PM I & O Totals 24 Hours 07/20/21 07/21/21 07/22/21 06:59 06:59 06:59 Intake Total 8163.275 / 8163.275 610.334 / 610.334 Output Total 6275 / 6275 Balance 1888.275 / 1888.275 610.334 / 610.334 Cumulative 07/20/21 11:59 thru 07/21/21 07:51 Intake Total 8751.609 Output Total 6275 Balance 2498.609 RT Ventilator Mngmt (Last Documented) Ventilator Ordered Settings Respiratory Rate 33 07/21/21 07:30 Ventilator - PT Measurements Respiratory Rate 33 Resident Activity Tracking Resident Involvement: Resident Care Provided Care Provided: Adult Hospital Medicine (1) DKA (diabetic ketoacidosis) Diabetes mellitus complication detail: without coma Diabetes mellitus type: other specified (including MELODIE) Qualified Code(s): E13.10 - Other specified diabetes mellitus with ketoacidosis without coma (2) Pancreatitis Acute pancreatitis complication: unspecified Chronicity: acute Pancreatitis type: unspecified pancreatitis type Qualified Code(s): K85.90 - Acute pancreatitis without necrosis or infection, unspecified
[2021-07-21] MEDS: POT PHOSPHATE MONOBASIC W/ SOD TAB PO SCH ×4 (08:00→21:13)
[2021-07-21] MEDS: HEPARIN SOD 5,000 UNIT/0.5 ML VIAL SQ SCH ×2 (08:01→21:13)
[2021-07-21 08:33] LABS: Blood Urea Nitrogen 37 mg/dl (6-23); Calcium 8.8 mg/dl (8.5-10.1); Carbon Dioxide 21 mmol/L (21-32); Chloride 122 mmol/L (98-107); Creatinine Clr Calc Pharmacy 77.5 ml/min; Est GFR (African American) 52.8 ml/min; Est GFR (Non-African American) 45.5 ml/min; Glucose Fasting 136 mg/dl (70-99)
[2021-07-21] MEDS ORDERED: NORMOSOL-R 2,000 ML IV ONE (08:49)
[2021-07-21 09:19] LABS: Potassium 4.9 mmol/L (3.5-5.1)
[2021-07-21] MEDS ORDERED: SODIUM PHOSPHATE 3 MMOL/1 ML INFUSION IV STA (09:31)
--- NOTE | 2021-07-21 09:52 | Billing Data ---
Date of Service July 21, 2021 Coding Level of Care Code 53489 Subseq Hosp Care Lvl 3
[2021-07-21] MEDS ORDERED: SODIUM PHOSPHATE 30 MMOL in SODIUM CHLORIDE 0.9% 500 ML IV ONE (10:00)
[2021-07-21 12:17] LABS: Creatinine Clr Calc Pharmacy 88.9 ml/min; Est GFR (African American) 62.3 ml/min; Est GFR (Non-African American) 53.8 ml/min; Potassium 4.6 mmol/L (3.5-5.1)
[2021-07-21] MEDS ORDERED: INSULIN GLARGINE SOLOSTAR 100 UNITS/ML 3 ML PEN SC ONE (12:30)
--- NOTE | 2021-07-21 13:02 | Pharmacy Report ---
Pharmacy Glycemic Short Note 2 - Date of Service July 21, 2021 - Glycemic Short BSG Results (Last 24 hours): 07/20/21 07/20/21 07/20/21 12:17 12:34 12:39 Glucose 1010 H* POC Glucose > 600 H* POC Glucose (other) > 700 H* Fasting Glucose 07/20/21 07/20/21 07/20/21 14:21 15:37 15:38 Glucose 674 H* POC Glucose > 600 H* > 600 H* POC Glucose (other) Fasting Glucose 07/20/21 07/20/21 07/20/21 17:35 17:36 18:56 Glucose POC Glucose 561 H* 453 H* POC Glucose (other) Fasting Glucose 559 H* 07/20/21 07/20/21 07/20/21 20:01 20:02 21:10 Glucose 406 H* POC Glucose 380 H* 379 H* POC Glucose (other) Fasting Glucose 406 H* 07/20/21 07/20/21 07/20/21 21:55 23:00 23:49 Glucose POC Glucose 359 H* 295 H POC Glucose (other) Fasting Glucose 105 H 07/20/21 07/21/21 07/21/21 23:58 00:50 01:12 Glucose POC Glucose 204 H 148 H 172 H POC Glucose (other) Fasting Glucose 07/21/21 07/21/21 07/21/21 01:31 02:15 03:20 Glucose POC Glucose 200 H 208 H 214 H POC Glucose (other) Fasting Glucose 07/21/21 07/21/21 07/21/21 04:02 04:16 05:22 Glucose POC Glucose 175 H 152 H POC Glucose (other) Fasting Glucose 170 H 07/21/21 07/21/21 07/21/21 06:15 07:17 07:36 Glucose POC Glucose 132 H 127 H POC Glucose (other) Fasting Glucose 136 H 07/21/21 07/21/21 07/21/21 08:14 09:22 09:24 Glucose POC Glucose 132 H 206 H 186 H POC Glucose (other) Fasting Glucose 07/21/21 07/21/21 07/21/21 10:11 11:27 11:31 Glucose POC Glucose 238 H 194 H POC Glucose (other) Fasting Glucose 228 H OUTPATIENT ANTIDIABETIC REGIMEN: * None - New diagnosis * HbA1c -13.9 ASSESSMENT: 07/21: * Continues on insulin drip per DKA protocol this AM. Drip running at 8 units/hr this AM, however ran as high as 25 units/hr last night. D51/2NS w/ 40mEQ KCl running @ 200ml/hr. * Repeat BMP this afternoon: AG-7, HCO3-23, pH 7.32(AM). Mental status improved and able to PO. * Plan to transition to SQ this afternoon. Lantus 40 units X 1 (~0.3unit/kg) now. Dextrose containing IVF to discontinue and will be ordered a diet. Overlap insulin infusion with Lantus at least 2 hours. Insulin infusion adjustments/weaning per calculator. August d/c insulin infusion once >/=2hr since Lantus administration, rate 2unit/hr or less, and 2 consecutive BSGs <200mg/dL. * Novolog ACHS CF/CR 18/6 (wt/stress 2-3) + overnight checks 07/20: * 36 yo admitted secondary to AMS. Found to have a BSG of 1010 mg/dL. Initial labs as follows: ABG 7.16, K 4.4, SCr 3.38, AG 30, CO2 7. * Pharmacy has been consulted to assist with inpatient management of DKA and ongoing glucose control. Patient is NPO at this time. * Received 4 L of fluids (30 mL/kg) in the ED. Started on an IV insulin drip at 10 units/hr with a 10 unit IV bolus. * Upon transfer to the floor, patient started on 1/2 NS + 20 KCl at 250 mL/hr. Most recent labs as follows: VB.17, K (hemolyzed), SCr 2.24, AG 24, CO2 9. * O2 saturations remain adequate on room air despite acidosis. * Will continue with insulin drip until BSGs in goal range of 150-250 mg/dL. Then, will add dextrose to fluids. Labs ordered q4h which is appropriate. PLAN FOR INPATIENT GLYCEMIC CONTROL: * Basal: * insulin infusion per DKA protocol * Lantus 40 unit SQ X 1 * Novolog ACHS per scale * Correction factor: 18mg/dL/unit * Carb ratio: 6 gm/unit
--- NOTE | 2021-07-21 16:43 | Hospitalist Progress Note ---
Date of Service July 21, 2021 Assessment & Plan (1) DKA (diabetic ketoacidosis): Plan: #. DKA/New onset DM #. Anion gap metabolic acidosis #. Pancreatitis No prior history of diabetes per patient, feeling sick for 2 days with nausea, v omiting, increased thirst, increased urination. Found to have glucose of 1010 with bicarb of 7, pH of 7.06 on VBG, urinary ketones positive Admitting CXR: No acute findings Admitting CT Head: No acute findings Admitting CTAP: Suggestive of acute pancreatitis Patient is alert and oriented x3, abdomen nontender, WBC trending down, pro-Zach minimally elevated but cannot be interpreted due to acute kidney injury/Acute distress of DKA. Patient received a dose of cefepime in the ED. Continue to f/u for possibility of infection. 07/20 Toxicology screen negative. Lipase elevated. 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 Patient will need follow-up with [facility] clinic or close follow-up with PCP for diabetes management. Anion gap closed, patient started on diet and subcu insulin per ICU. Will need diabetic medication upon discharge per pharmacy recommendation. #. Electrolytes abnormality Admitting sodium of 130, corrected for hyperglycemia--> 145 Admitting POC potassium 5.3 Potassium level WNL, sodium slightly hypernatremic, continue to monitor. 1/2 NS at 80 ml/hr Monitor and replete according to DKA protocol #. FIONA Admitting BUN/creatinine: 55/3.38 Likely prerenal secondary to DKA Status post IV fluid resuscitation, continue with IV fluid, monitor BMP daily Expect to improve with IV hydration. Creatinine trending down. DVT Px: Heparin subcu. Full Code Disposition: DG to PCU/Tele Text document was generated using voice recognition software. It may contain grammatical or spelling errors. Kindly contact undersigned for clarification of any documentation item in question. Admission and Anticipated Discharge Date Admission Date: July 20, 2021 Subjective Patient seen and examined at bedside as a follow-up of DKA/new onset DM and pancreatitis and FIONA. Patient was lying in bed, on room air, NAD, alert and oriented x3, no new acute events overnight, patient was running insulin drip at bedside exam, per RN patient is doing fine, patient reports no belly pain. Abdomen was nontender on exam. Patient denies any headache/dizziness/chest pain/palpitation/other review of symptoms. Per RN, patient is incontinent of urine. Physical Exam Physical Exam: GENERAL: Alert and oriented x3. NAD, on RA. HEENT: No pallor, no icterus. Pupils equal, round and reactive to light. Oral mucosa moist. NECK: No JVD, no neck masses. HEART: S1 and S2 heard. Regular rhythm. Tachycardic. No murmur, no gallop. RESPIRATORY SYSTEM: Normal AP diameter. No accessory muscle use. No wheezing, no crackles. ABDOMEN: Soft, bowel sounds present, nontender, no distention. CENTRAL NERVOUS SYSTEM: No facial droop. Speech is clear. Obeys simple commands. Moves extremities. EXTREMITIES: No edema, no erythema seen. Results & Data Results & Data ([facility]) Vital Signs (Past 12 Hours) Vital Signs Temp Pulse Resp BP Pulse Ox 07/21/21 15:24 36.6 C 112 H 24 156/92 H 98 07/21/21 15:00 98 H 24 99 07/21/21 14:00 98 H 24 99 07/21/21 13:00 91 H 26 H 98 07/21/21 12:00 36.5 C 114 H 31 H 07/21/21 11:51 119 H 16 156/98 H 99 07/21/21 10:00 98 H 23 99 07/21/21 08:10 20 07/21/21 08:04 121/79 07/21/21 07:38 122 H 35 H 96 07/21/21 07:30 123 H 33 H 97 07/21/21 07:00 123 H 31 H 106/82 94 07/21/21 06:30 126 H 16 95 07/21/21 06:00 126 H 31 H 128/79 95 07/21/21 05:30 130 H 17 97 07/21/21 05:23 132 H 25 H 128/76 95 07/21/21 05:00 125 H 14 94 (1) DKA (diabetic ketoacidosis) Diabetes mellitus complication detail: without coma Diabetes mellitus type: other specified (including MELODIE) Qualified Code(s): E13.10 - Other specified diabetes mellitus with ketoacidosis without coma
[2021-07-21] MEDS: SODIUM CHLORIDE 0.45 % 1,000 ML IV SCH (17:48)
[2021-07-22] MEDS: INSULIN ASPART PER UNIT SC SCH ×7 (00:06→23:27)
[2021-07-22] MEDS: ONDANSETRON INJ 2 MG/ML 2 ML VIAL IV PRN ×2 (03:09→11:25)
[2021-07-22] MEDS: INSULIN REGULAR 250 UNITS in SODIUM CHLORIDE 0.9% 247.5 ML IV SCH (04:06)
[2021-07-22 05:44] LABS: Hematocrit (blood only) 35.1 % (42-52); Hemoglobin 11.8 g/dL (14.0-18.0); Mean Corpuscular Hemoglobin 27.3 pg (25-34); Mean Corpuscular Hgb Conc 33.6 g/dL (32-36); Mean Corpuscular Volume 81.3 fL (80-100); Mean Platelet Volume 11.8 fL (7.4-10.4); Nucleated RBC # (auto) 0.02 K/uL (0-0); Nucleated RBC % (auto) 0.2 %; Platelet Count 159 K/uL (130-400); RDW Coefficient of Variation 14.2 % (11.5-14.5); RDW Standard Deviation 42.3 fL (36.4-46.3); Red Blood Count 4.32 M/uL (4.7-6.1); White Blood Count 11.01 K/uL (4.8-10.8)
[2021-07-22] MEDS: SODIUM CHLORIDE 0.45 % 1,000 ML IV SCH (06:02)
[2021-07-22 06:17] LABS: BUN Creatinine Ratio 16.5 (10-20); Calcium 8.1 mg/dl (8.5-10.1); Creatinine Clr Calc Pharmacy 132.9 ml/min; Est GFR (African American) 101.4 ml/min; Est GFR (Non-African American) 87.5 ml/min; Magnesium 2.3 mg/dl (1.7-2.4); Phosphorus 1.9 mg/dl (2.5-4.9)
[2021-07-22] MEDS ORDERED: INSULIN GLARGINE SOLOSTAR 100 UNITS/ML 3 ML PEN SC ONE ×3 (07:00→18:45)
[2021-07-22] MEDS: HEPARIN SOD 5,000 UNIT/0.5 ML VIAL SQ SCH ×2 (07:42→20:44)
[2021-07-22] MEDS: POT PHOSPHATE MONOBASIC W/ SOD TAB PO SCH ×6 (07:42→20:44)
--- NOTE | 2021-07-22 13:48 | Pharmacy Report ---
Pharmacy Glycemic Short Note 2 - Date of Service July 22, 2021 - Glycemic Short BSG Results (Last 24 hours): 07/21/21 07/21/21 07/21/21 14:07 15:17 16:23 Glucose POC Glucose 205 H 191 H 311 H* 07/21/21 07/21/21 07/21/21 17:46 19:52 21:01 Glucose POC Glucose 214 H 158 H 233 H 07/21/21 07/21/21 07/21/21 21:58 23:12 23:57 Glucose POC Glucose 204 H 165 H 214 H 07/22/21 07/22/21 07/22/21 01:08 02:01 03:01 Glucose POC Glucose 241 H 165 H 299 H 07/22/21 07/22/21 07/22/21 04:02 05:05 05:12 Glucose 231 H POC Glucose 232 H 237 H 07/22/21 07/22/21 07/22/21 06:17 07:15 10:58 Glucose POC Glucose 236 H 203 H 276 H OUTPATIENT ANTIDIABETIC REGIMEN: * None - New diagnosis * HbA1c -13.9 ASSESSMENT: 07/22: * Insulin drip did not wean off overnight. This AM, drip rate was still ~ 7 unit/hr. 40 units of Lantus given yesterday afternoon. * Tolerating a diet, other stressors stable * Given continued high insulin needs, Lantus 60units this AM with an HS scale * Novolog tightened to 15/5 and then even further to 12/4 with lunch today. Insulin drip discontinued with AM Lantus. 07/21: * Continues on insulin drip per DKA protocol this AM. Drip running at 8 units/hr this AM, however ran as high as 25 units/hr last night. D51/2NS w/ 40mEQ KCl running @ 200ml/hr. * Repeat BMP this afternoon: AG-7, HCO3-23, pH 7.32(AM). Mental status improved and able to PO. * Plan to transition to SQ this afternoon. Lantus 40 units X 1 (~0.3unit/kg) now. Dextrose containing IVF to discontinue and will be ordered a diet. O verlap insulin infusion with Lantus at least 2 hours. Insulin infusion adjustments/weaning per calculator. May d/c insulin infusion once >/=2hr since Lantus administration, rate 2unit/hr or less, and 2 consecutive BSGs <200mg/dL. * Novolog ACHS CF/CR 18/6 (wt/stress 2-3) + overnight checks 07/20: * 36 yo admitted secondary to AMS. Found to have a BSG of 1010 mg/dL. Initial labs as follows: ABG 7.16, K 4.4, SCr 3.38, AG 30, CO2 7. * Pharmacy has been consulted to assist with inpatient management of DKA and ongoing glucose control. Patient is NPO at this time. * Received 4 L of fluids (30 mL/kg) in the ED. Started on an IV insulin drip at 10 units/hr with a 10 unit IV bolus. * Upon transfer to the floor, patient started on 1/2 NS + 20 KCl at 250 mL/hr. Most recent labs as follows: VB.17, K (hemolyzed), SCr 2.24, AG 24, CO2 9. * O2 saturations remain adequate on room air despite acidosis. * Will continue with insulin drip until BSGs in goal range of 150-250 mg/dL. Then, will add dextrose to fluids. Labs ordered q4h which is appropriate. PLAN FOR INPATIENT GLYCEMIC CONTROL: * Basal: * insulin infusion per DKA protocol * Lantus 60 unit SQ X 1 * Novolog ACHS per scale * Correction factor: 12mg/dL/unit * Carb ratio: 4 gm/unit
--- NOTE | 2021-07-22 16:02 | Hospitalist Progress Note ---
Date of Service July 22, 2021 Assessment & Plan (1) DKA (diabetic ketoacidosis): Plan: #. DKA/New onset DM- A1c 13.9 No prior history of diabetes per patient, feeling sick for 2 days with nausea, vomiting, increased thirst, increased urination. No family h/o diabetes per patient. Found to have glucose of 1010 with bicarb of 7, pH of 7.06 on VBG, urinary ketones positive On admission, CXR and CT head with no acute findings 07/20 Toxicology screen negative. - Unclear type 1 or 2 at this point- likely type 2 given his obesity and lifestyle- will send anti-islet antibodies but result won't be available for several days - DKA resolved, now on sc insulin, glycemic pharmacist managing - Seen by nurse educator- recommendations noted - will need close follow up at discharge. Patient is from [place] and does not have a PCP or working insurance here, complicating the discharge plan #. Acute pancreatitis- CT A/P with acute pancreatitis but no complications, Lipase elevated. - Still has abdominal pain worse with eating - Will back off to clear liquids, if still does not tolerate- bowel rest - Pain management - Recheck lipase and LFT in am #. Hypokalemia- repleted, recheck in am #. Hypophosphatemia- repleted, recheck in am #. FIONA- resolved. Cr on admission 3.4, now down to 1.1. #. Sinus tachycardia- ?from pain. pain management. Telemetry. IVF as needed if poor po intake. # UTI- will start on rocephin pending final urine clx from 07/20 DVT prophylaxis- sc heparin Disposition: PCU on tele. Admission and Anticipated Discharge Date Admission Date: July 20, 2021 Subjective Seen and examined at bedside. Awake, alert, oriented, conversing well. States he has abdominal pain, worse with eating. Had little gas but no bowel movement yet. No nausea or vomiting. No fever or chills. No chest pain or palpitations. Discussed about insulin at discharge and he seems amenable. Physical Exam Physical Exam: General: Lying comfortably in bed, not in distress, on room air HEENT: EOMI, SILVIO, MMM Chest: Decreased breath sounds bilaterally, no wheezes or crackles CVS: Tachycardic, normal heart sounds, no murmur Abdomen: Soft, tenderness in epigastric region, not distended, bowel sounds present Neuro: Awake, alert, oriented, conversing well, non focal Extremities: No cyanosis, clubbing or edema Results & Data Results & Data ([facility]) Vital Signs (Past 12 Hours) Vital Signs Temp Pulse Pulse Resp BP BP Pulse Ox 07/22/21 14:00 102 H 23 07/22/21 11:36 36.9 C 07/22/21 11:01 117 H 29 H 122/80 98 07/22/21 10:00 114 H 26 H 07/22/21 08:00 37.0 C 07/22/21 07:27 106 H 24 158/94 H 98 07/22/21 04:00 37 C 100 H 24 128/82 98 Laboratory Results Short CBC 07/22/21 Range/Units 05:12 WBC 11.01 H (4.8-10.8) K/uL Hgb 11.8 L (14.0-18.0) g/dL Hct 35.1 L (42-52) % Plt Count 159 (130-400) K/uL BMP 07/22/21 07/22/21 05:12 06:56 Sodium 143 Potassium 3.3 L D Chloride 112 H Carbon Dioxide 23 BUN 18 Creatinine 1.09 D Glucose 231 H Calcium 8.1 L Medications Administered Current Inpatient Medications Acetaminophen (Acetaminophen 325 Mg Tab) 650 mg PO Q4H PRN PRN Reason: Fever/Mild Pain (Pain 1,2,3) Stop: 08/19/21 16:59 Dextrose (Dextrose 50% 50 Ml Syringe) 25 - 50 ml IV UD PRN; Protocol PRN Reason: Hypoglycemia Protocol Stop: 08/19/21 12:45 Glucagon (Glucagon For Inj 1 Mg Vial) 1 mg SQ UD PRN; Protocol PRN Reason: Hypoglycemia Protocol Stop: 08/19/21 12:45 Glucose (Glucose 10 Tabs/Tube) 4 - 8 tabs PO UD PRN; Protocol PRN Reason: Hypoglycemia Protocol Stop: 08/19/21 12:45 Glucose (Glucose 40% Gel 15 Gm Tube) 15 - 30 gm PO UD PRN; Protocol PRN Reason: Hypoglycemia Protocol Stop: 08/19/21 12:45 Heparin Sodium (Porcine) (Heparin Sod 5,000 Unit/0.5 Ml Vial) 5,000 units SQ Q12 [facility] Stop: 08/19/21 20:59 Last Admin: 07/22/21 07:42 Dose: 5,000 units Documented by: Sodium Chloride (1/2 Nss) 1,000 mls @ 80 mls/hr IV .[id number] [facility] Stop: 07/22/21 17:44 Last Infusion: 07/22/21 16:33 Dose: Infused Documented by: Insulin Aspart (Insulin Aspart Per Unit) 0 units SC ACHS [facility] Stop: 08/20/21 11:29 Last Admin: 07/22/21 16:31 Dose: 27 units Documented by: Insulin Glargine (Insulin Glargine Solostar 100 Units/Ml 3 Ml Pen) 0 units SC HS [facility]; Protocol Stop: 08/21/21 20:59 Miscellaneous (Carbohydrates For Hypoglycemia ) 15 - 30 gm PO UD PRN PRN Reason: Hypoglycemia Protocol Stop: 08/19/21 12:45 Miscellaneous Information (Pharmacy Glycemic Mgmt Consult) 1 ea N/A UD PRN PRN Reason: Consult Stop: 08/19/21 15:20 Ondansetron HCl (Ondansetron Inj 2 Mg/Ml 2 Ml Vial) 4 mg IV Q6H PRN PRN Reason: Nausea Stop: 08/19/21 16:39 Last Admin: 07/22/21 11:25 Dose: 4 mg Documented by: Potassium Chloride (Potassium Chloride Crtab 20 Meq Tabcr) 40 meq PO BID [facility] Stop: 08/21/21 20:59 Potassium Phosphate (Pot Phosphate Monobasic W/ Sod Tab) 1 tab PO QID [facility] Stop: 08/19/21 16:59 Last Admin: 07/22/21 16:32 Dose: Not Given Documented by: Potassium Phosphate (Pot Phosphate Monobasic W/ Sod Tab) 2 tab PO QID [facility] Stop: 08/21/21 16:59 Last Admin: 07/22/21 16:32 Dose: 2 tab Documented by: (1) DKA (diabetic ketoacidosis) Diabetes mellitus complication detail: without coma Diabetes mellitus type: other specified (including MELODIE) Qualified Code(s): E13.10 - Other specified diabetes mellitus with ketoacidosis without coma
[2021-07-22] MEDS: cefTRIAXone SODIUM 2,000 MG in DEXTROSE 5% 50 ML IV SCH (18:30)
[2021-07-22] MEDS ORDERED: MoRPHine SULFATE 2 MG/ML CARP IV PRN (18:40)
[2021-07-22] MEDS ORDERED: INSULIN ASPART PER UNIT SC ONE (18:45)
[2021-07-22] MEDS: POTASSIUM CHLORIDE CRTAB 20 MEQ TABCR PO SCH (20:45)
[2021-07-22] MEDS ORDERED: INSULIN GLARGINE SOLOSTAR 100 UNITS/ML 3 ML PEN SC SCH (21:00)
[2021-07-23] MEDS: INSULIN ASPART PER UNIT SC SCH ×5 (04:26→21:09)
[2021-07-23 06:14] LABS: Basophils # (auto) 0.01 K/uL (0-0.2); Basophils % (auto) 0.1 %; Eosinophils # (auto) 0.05 K/uL (0-0.5); Eosinophils % (auto) 0.5 %; Hematocrit (blood only) 33.2 % (42-52); Lymphocytes # (auto) 1.87 K/uL (1.2-3.4); Lymphocytes % (auto) 19.3 %; Mean Corpuscular Hemoglobin 27.4 pg (25-34); Mean Corpuscular Hgb Conc 33.1 g/dL (32-36); Mean Corpuscular Volume 82.6 fL (80-100); Mean Platelet Volume 11.3 fL (7.4-10.4); Monocytes # (auto) 0.74 K/uL (0.11-0.59); Monocytes % (auto) 7.6 %; Neutrophils # (auto) 6.94 K/uL (1.4-6.5); Neutrophils % (auto) 71.5 %; Platelet Count 131 K/uL (130-400); RDW Coefficient of Variation 14.1 % (11.5-14.5); RDW Standard Deviation 42.8 fL (36.4-46.3); Red Blood Count 4.02 M/uL (4.7-6.1); White Blood Count 9.71 K/uL (4.8-10.8)
[2021-07-23 06:34] LABS: Albumin Level 2.8 gm/dl (3.4-5.0); BUN Creatinine Ratio 13.1 (10-20); Bilirubin Direct 0.1 mg/dl (0-0.2); Bilirubin,Total 0.6 mg/dl (0.2-1.0); Calcium 8.4 mg/dl (8.5-10.1); Est GFR (African American) 131.5 ml/min; Est GFR (Non-African American) 113.4 ml/min; Magnesium 2.1 mg/dl (1.7-2.4); Phosphorus 1.8 mg/dl (2.5-4.9); Potassium 3.4 mmol/L (3.5-5.1); Total Protein 6.8 gm/dl (6.0-8.3)
[2021-07-23] MEDS ORDERED: INSULIN GLARGINE SOLOSTAR 100 UNITS/ML 3 ML PEN SC ONE (07:30)
[2021-07-23] MEDS: HEPARIN SOD 5,000 UNIT/0.5 ML VIAL SQ SCH ×2 (07:58→21:11)
[2021-07-23] MEDS: POT PHOSPHATE MONOBASIC W/ SOD TAB PO SCH ×4 (08:00→21:11)
[2021-07-23] MEDS: POTASSIUM CHLORIDE CRTAB 20 MEQ TABCR PO SCH ×2 (08:00→21:21)
--- NOTE | 2021-07-23 13:42 | Hospitalist Progress Note ---
Date of Service July 23, 2021 Assessment & Plan (1) DKA (diabetic ketoacidosis): Plan: #. DKA/New onset DM- A1c 13.9 No prior history of diabetes per patient, feeling sick for 2 days with nausea, vomiting, increased thirst, increased urination. No family h/o diabetes per patient. Found to have glucose of 1010 with bicarb of 7, pH of 7.06 on VBG, urinary ketones positive On admission, CXR and CT head with no acute findings 07/20 Toxicology screen negative. - Unclear type 1 or 2 at this point- likely type 2 given his obesity and lifestyle- will send anti-islet antibodies but result won't be available for several days - DKA resolved, now on sc insulin, glycemic pharmacist managing - Seen by butadiene converter utility operator- recommendations noted - will need close follow up at discharge. Patient is from [place] and does not have a PCP or working insurance here, complicating the discharge plan #. Acute pancreatitis- likely alcoholic pancreatitis. CT A/P with acute pancreatitis but no complications; GB with no stones mentioned, Lipase has trended down. - Advance diet as tolerated #. Hypokalemia- repleted, recheck in am #. Hypophosphatemia- repleted, recheck in am #. FIONA- resolved. Cr on admission 3.4, now down to 0.8 #. Sinus tachycardia- resolved. Telemetry reviewed, unremarkable otherwise. # UTI- urine clx shows alpha strep which does not usually cause UTI but it was a straight cath specimen. Currently on rocephin. Will change to keflex for short course. DVT prophylaxis- sc heparin Disposition: Likely discharge tomorrow if continues to improve Admission and Anticipated Discharge Date Admission Date: July 20, 2021 Subjective Seen and examined at bedside. Feels better today compared to yesterday. Tolerated clears well. Willing to try solid food for supper. No nausea, vomiting, chest pain, shortness of breath. Passing small amount of gas. No bowel movement yet. Recommended frequent ambulation. Physical Exam Physical Exam: General: Lying comfortably in bed, not in distress, on room air HEENT: EOMI, SILVIO, MMM Chest: Fair breath sounds bilaterally, no wheezes or crackles CVS: Tachycardic, normal heart sounds, no murmur Abdomen: Soft, non tender, not distended, bowel sounds present Neuro: Awake, alert, oriented, conversing well, non focal Extremities: No cyanosis, clubbing or edema Results & Data Results & Data ([facility]) Vital Signs (Past 12 Hours) Vital Signs Temp Pulse Pulse Resp BP Pulse Ox 07/23/21 11:56 37.0 C 75 19 165/75 H 94 07/23/21 08:09 37.3 C 99 H 19 150/70 H 96 07/23/21 07:29 91 H 07/23/21 03:15 37.8 C H 96 H 18 146/80 H 94 Laboratory Results Short CBC 07/23/21 Range/Units 05:52 WBC 9.71 (4.8-10.8) K/uL Hgb 11.0 L (14.0-18.0) g/dL Hct 33.2 L (42-52) % Plt Count 131 (130-400) K/uL BMP 07/23/21 05:52 Sodium 143 Potassium 3.4 L Chloride 107 Carbon Dioxide 28 BUN 11 Creatinine 0.84 Glucose 231 H Calcium 8.4 L Liver Function 07/23/21 Range/Units 05:52 Total Bilirubin 0.6 (0.2-1.0) mg/dl Direct Bilirubin 0.1 (0-0.2) mg/dl AST 33 (13-39) U/L ALT 41 (7-52) U/L Alkaline Phosphatase 63 (34-104) U/L Albumin 2.8 L (3.4-5.0) gm/dl Medications Administered Current Inpatient Medications Acetaminophen (Acetaminophen 325 Mg Tab) 650 mg PO Q4H PRN PRN Reason: Fever/Mild Pain (Pain 1,2,3) Stop: 08/19/21 16:59 Dextrose (Dextrose 50% 50 Ml Syringe) 25 - 50 ml IV UD PRN; Protocol PRN Reason: Hypoglycemia Protocol Stop: 08/19/21 12:45 Glucagon (Glucagon For Inj 1 Mg Vial) 1 mg SQ UD PRN; Protocol PRN Reason: Hypoglycemia Protocol Stop: 08/19/21 12:45 Glucose (Glucose 10 Tabs/Tube) 4 - 8 tabs PO UD PRN; Protocol PRN Reason: Hypoglycemia Protocol Stop: 08/19/21 12:45 Glucose (Glucose 40% Gel 15 Gm Tube) 15 - 30 gm PO UD PRN; Protocol PRN Reason: Hypoglycemia Protocol Stop: 08/19/21 12:45 Heparin Sodium (Porcine) (Heparin Sod 5,000 Unit/0.5 Ml Vial) 5,000 units SQ Q12 [facility] Stop: 08/19/21 20:59 Last Admin: 07/23/21 07:58 Dose: 5,000 units Documented by: Ceftriaxone Sodium 2,000 mg/ (Dextrose) 70 mls @ 100 mls/hr IV Q24H [facility]; Protocol Stop: 07/27/21 17:14 Last Infusion: 07/22/21 19:16 Dose: Infused Documented by: Insulin Aspart (Insulin Aspart Per Unit) 0 units SC ACHS [facility] Stop: 08/20/21 11:29 Last Admin: 07/23/21 11:46 Dose: 26 units Documented by: Miscellaneous (Carbohydrates For Hypoglycemia ) 15 - 30 gm PO UD PRN PRN Reason: Hypoglycemia Protocol Stop: 08/19/21 12:45 Miscellaneous Information (Pharmacy Glycemic Mgmt Consult) 1 ea N/A UD PRN PRN Reason: Consult Stop: 08/19/21 15:20 Ondansetron HCl (Ondansetron Inj 2 Mg/Ml 2 Ml Vial) 4 mg IV Q6H PRN PRN Reason: Nausea Stop: 08/19/21 16:39 Last Admin: 07/22/21 11:25 Dose: 4 mg Documented by: Potassium Chloride (Potassium Chloride Crtab 20 Meq Tabcr) 40 meq PO BID [facility] Stop: 08/21/21 20:59 Last Admin: 07/23/21 08:00 Dose: 40 meq Documented by: Potassium Phosphate (Pot Phosphate Monobasic W/ Sod Tab) 2 tab PO QID [facility] Stop: 08/21/21 16:59 Last Admin: 07/23/21 11:50 Dose: 2 tab Documented by: (1) DKA (diabetic ketoacidosis) Diabetes mellitus complication detail: without coma Diabetes mellitus type: other specified (including MELODIE) Qualified Code(s): E13.10 - Other specified diabetes mellitus with ketoacidosis without coma
--- NOTE | 2021-07-23 14:13 | Pharmacy Report ---
Pharmacy Glycemic Short Note 2 - Date of Service July 23, 2021 - Glycemic Short BSG Results (Last 24 hours): 07/22/21 07/22/21 07/22/21 16:15 20:35 23:24 Glucose POC Glucose 288 H 263 H 197 H 07/23/21 07/23/21 07/23/21 03:59 05:52 07:10 Glucose 231 H POC Glucose 210 H 209 H 07/23/21 11:03 Glucose POC Glucose 203 H OUTPATIENT ANTIDIABETIC REGIMEN: * None - New diagnosis * HbA1c -13.9 ASSESSMENT: 07/23: * Patient received total of 187 units of insulin yesterday; 80 units basal and 107 units bolus. * BSGs yesterday were [phone] mg/dl. Fasting BSG today was 209 mg/dl. * AM basal dose increased to 70 units today. HS basal dose scale increased based on BSG. * High post-prandial BSGs yesterday, Novolog CF and CR tightened this AM. * Plan to trial Metformin oral dose tomorrow with dinner. 07/22: * Insulin drip did not wean off overnight. This AM, drip rate was still ~ 7 unit/hr. 40 units of Lantus given yesterday afternoon. * Tolerating a diet, other stressors stable * Given continued high insulin needs, Lantus 60units this AM with an HS scale * Novolog tightened to 15/5 and then even further to 12/4 with lunch today. Insulin drip discontinued with AM Lantus. 07/21: * Continues on insulin drip per DKA protocol this AM. Drip running at 8 units/hr this AM, however ran as high as 25 units/hr last night. D51/2NS w/ 40mEQ KCl running @ 200ml/hr. * Repeat BMP this afternoon: AG-7, HCO3-23, pH 7.32(AM). Mental status improved and able to PO. * Plan to transition to SQ this afternoon. Lantus 40 units X 1 (~0.3unit/kg) now. Dextrose containing IVF to discontinue and will be ordered a diet. Overlap insulin infusion with Lantus at least 2 hours. Insulin infusion adjustments/weaning per calculator. May d/c insulin infusion once >/=2hr since Lantus administration, rate 2unit/hr or less, and 2 consecutive BSGs <200mg/dL. * Novolog ACHS CF/CR 18/6 (wt/stress 2-3) + overnight checks 07/20: * 36 yo admitted secondary to AMS. Found to have a BSG of 1010 mg/dL. Initial labs as follows: ABG 7.16, K 4.4, SCr 3.38, AG 30, CO2 7. * Pharmacy has been consulted to assist with inpatient management of DKA and ongoing glucose control. Patient is NPO at this time. * Received 4 L of fluids (30 mL/kg) in the ED. Started on an IV insulin drip at 10 units/hr with a 10 unit IV bolus. * Upon transfer to the floor, patient started on 1/2 NS + 20 KCl at 250 mL/hr. Most recent labs as follows: VB.17, K (hemolyzed), SCr 2.24, AG 24, CO2 9. * O2 saturations remain adequate on room air despite acidosis. * Will continue with insulin drip until BSGs in goal range of 150-250 mg/dL. Then, will add dextrose to fluids. Labs ordered q4h which is appropriate. PLAN FOR INPATIENT GLYCEMIC CONTROL: * Basal: * Lantus 70 units SQ today AM * Lantus 25-30 units dose scale SQ HS based on BSG * Novolog ACHS per scale * Correction factor: 8 mg/dL/unit * Carb ratio: 2 gm/unit
[2021-07-23] MEDS ORDERED: metFORMIN HCL ER 500 MG TABCR PO SCH (16:30)
[2021-07-23] MEDS: cefTRIAXone SODIUM 2,000 MG in DEXTROSE 5% 50 ML IV SCH (17:05)
[2021-07-23] MEDS ORDERED: INSULIN GLARGINE SOLOSTAR 100 UNITS/ML 3 ML PEN SC SCH (21:00)
[2021-07-23] MEDS: DOCUSATE SODIUM 100 MG CAP PO SCH (21:10)
[2021-07-24] MEDS: POT PHOSPHATE MONOBASIC W/ SOD TAB PO SCH ×2 (08:12→12:30)
[2021-07-24] MEDS: HEPARIN SOD 5,000 UNIT/0.5 ML VIAL SQ SCH (08:13)
[2021-07-24] MEDS: INSULIN ASPART PER UNIT SC SCH ×3 (08:13→12:31)
[2021-07-24] MEDS: DOCUSATE SODIUM 100 MG CAP PO SCH (08:13)
[2021-07-24] MEDS: POTASSIUM CHLORIDE CRTAB 20 MEQ TABCR PO SCH (08:19)
[2021-07-24 08:35] LABS: BUN Creatinine Ratio 13.3 (10-20); Calcium 8.1 mg/dl (8.5-10.1); Chol HDL Ratio 4.9 (0-5); Creatinine Clr Calc Pharmacy 179.1 ml/min; Est GFR (African American) 132.1 ml/min; Phosphorus 2.5 mg/dl (2.5-4.9); Potassium 3.5 mmol/L (3.5-5.1)
[2021-07-24] MEDS ORDERED: INSULIN GLARGINE SOLOSTAR 100 UNITS/ML 3 ML PEN SC SCH ×2 (09:00→21:00)
--- NOTE | 2021-07-24 09:57 | Ultrasound Report ---
US gallbladder HISTORY: 36 years-old Male Acute pancreatitis ?biliary colic acute right upper quadrant abdominal pa in COMPARISON: CT abdomen and pelvis 07/20/2021 TECHNIQUE: Multiple real-time sonographic images of the abdominal right upper quadrant were obtained assessing grayscale appearance and color flow FINDINGS: The pancreas is obscured by bowel gas. There is increased echogenicity of the hepatic parenchyma with poor through transmission. The liver is enlarged measuring up to 19 cm in length. Ill-defined area o f decreased echogenicity within the right hepatic lobe measures up to 2.1 x 1.6 x 1.8 cm suggestive o f fatty sparing. No definitive hepatic mass identified. The common bile duct is normal measuring 5 mm. The gallbladder is within normal limits without cholel ithiasis, wall thickening or pericholecystic fluid. Limited study secondary to patient body habitus. The imaged right kidney demonstrates no hydronephrosis. IMPRESSION: 1. Hepatomegaly with hepatic steatosis. 2. No cholelithiasis or sonographic evidence of acute cholecystitis. 3. No biliary ductal dilation. ACT 112: Negative or not required by law. The above report was generated using voice recognition software. It may contain grammatical, syntax o r spelling errors. Electronically signed by: Naveen Morillo M.D. 07/24/2021 9:55 AM
--- NOTE | 2021-07-24 14:24 | Pharmacy Report ---
Pharmacy Glycemic Short Note 2 - Date of Service July 24, 2021 - Glycemic Short BSG Results (Last 24 hours): 07/23/21 07/23/21 07/24/21 16:14 20:29 01:12 Glucose POC Glucose 122 H 133 H 151 H 07/24/21 07/24/21 07/24/21 04:44 07:05 07:14 Glucose 223 H POC Glucose 199 H 209 H 07/24/21 11:48 Glucose POC Glucose 270 H OUTPATIENT ANTIDIABETIC REGIMEN: * None - New diagnosis * HbA1c -13.9 ASSESSMENT: 07/24: * Patient received total of 170 units of insulin yesterday; 95 units basal and 75 units bolus. * Fasting BSG today was 209 mg/dl. Patient was NPO this AM for US. Correctional insulin was given early and then carbs covered later. * 60 units of basal given this AM (lower than yesterday) to increase HS basal dose * Novolog parameters loosened at lunch to account for the late carb coverage at breakfast * Plan for discharge today. Recommended once daily Tresiba insulin in AM and Novolog TID with meals + Metformin. 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 07/23: * Patient received total of 187 units of insulin yesterday; 80 units basal and 107 units bolus. * BSGs yesterday were [phone] mg/dl. Fasting BSG today was 209 mg/ dl. * AM basal dose increased to 70 units today. HS basal dose scale increased based on BSG. * High post-prandial BSGs yesterday, Novolog CF and CR tightened this AM. * Plan to trial Metformin oral dose tomorrow with dinner. 07/22: * Insulin drip did not wean off overnight. This AM, drip rate was still ~ 7 unit/hr. 40 units of Lantus given yesterday afternoon. * Tolerating a diet, other stressors stable * Given continued high insulin needs, Lantus 60units this AM with an HS scale * Novolog tightened to 15/5 and then even further to 12/4 with lunch today. Insulin drip discontinued with AM Lantus. 07/21: * Continues on insulin drip per DKA protocol this AM. Drip running at 8 units/hr this AM, however ran as high as 25 units/hr last night. D51/2NS w/ 40mEQ KCl running @ 200ml/hr. * Repeat BMP this afternoon: AG-7, HCO3-23, pH 7.32(AM). Mental status improved and able to PO. * Plan to transition to SQ this afternoon. Lantus 40 units X 1 (~0.3unit/kg) now. Dextrose containing IVF to discontinue and will be ordered a diet. Overlap insulin infusion with Lantus at least 2 hours. Insulin infusion adjustments/weaning per calculator. May d/c insulin infusion once >/=2hr since Lantus administration, rate 2unit/hr or less, and 2 consecutive BSGs <200mg/dL. * Novolog ACHS CF/CR 18/6 (wt/stress 2-3) + overnight checks 07/20: * 36 yo admitted secondary to AMS. Found to have a BSG of 1010 mg/dL. Initial labs as follows: ABG 7.16, K 4.4, SCr 3.38, AG 30, CO2 7. * Pharmacy has been consulted to assist with inpatient management of DKA and ongoing glucose control. Patient is NPO at this time. * Received 4 L of fluids (30 mL/kg) in the ED. Started on an IV insulin drip at 10 units/hr with a 10 unit IV bolus. * Upon transfer to the floor, patient started on 1/2 NS + 20 KCl at 250 mL/hr. Most recent labs as follows: VB.17, K (hemolyzed), SCr 2.24, AG 24, CO2 9. * O2 saturations remain adequate on room air despite acidosis. * Will continue with insulin drip until BSGs in goal range of 150-250 mg/dL. Then, will add dextrose to fluids. Labs ordered q4h which is appropriate. PLAN FOR INPATIENT GLYCEMIC CONTROL: * Basal: * Lantus 70 units SQ today AM * Lantus 25-30 units dose scale SQ HS based on BSG * Novolog ACHS per scale * Correction factor: 8 mg/dL/unit * Carb ratio: 2 gm/unit
--- NOTE | 2021-07-24 14:57 | Discharge Summary ---
Date of Service July 24, 2021 Admission HPI Per Admitting Provider 36-year-old gentleman with no significant PMH and no home meds who is traveling to the [facility] region presented to our ED 07/20 with complaint of not feeling well for past 2 days, nausea, vomiting x2 prior to coming to hospital, increased thirst, increased urination and feeling confused/cold. Patient remains very thirsty at bedside exam. Patient is drowsy but oriented x3 at bedside exam, denies any headache or di zziness, denies any belly pain but abdomen is tender on exam, denies any chest pain or funny sensation/heart racing, denies any open wound anywhere in the body. Patient denies use of tobacco/smoking/alcohol/recreational drugs. Patient denies personal history of cancer or blood clot or asthma or pancreatitis or other chronic medical condition. Patient denies family history of cancer or blood clot or diabetes. Full code Admission Exam Per Admitting Provider GENERAL: Drowsy/lethargic and oriented x3. NAD, on RA. Unable to cooperate fully, mildly restless HEENT: No pallor, no icterus. Pupils equal, round and reactive to light. Oral mucosa dry. NECK: No JVD, no neck masses. HEART: S1 and S2 heard. Regular rhythm. Tachycardic. No murmur, no gallop. RESPIRATORY SYSTEM: Normal AP diameter. No accessory muscle use. No wheezing, no crackles. ABDOMEN: Soft, bowel sounds present, +tender, no distention. CENTRAL NERVOUS SYSTEM: No facial droop. Speech is clear. Obeys simple commands. Moves extremities. EXTREMITIES: No edema, no erythema seen. UC w/ light yellow urine collection noted. No vertebral tenderness to palpation. Principal Diagnosis DKA, newly diagnosed diabetes mellitus, Acute pancreatitis Discharge Exam General: Lying comfortably in bed, not in distress, on room air HEENT: EOMI, SILVIO, MMM Chest: Fair breath sounds bilaterally, no wheezes or crackles CVS: Tachycardic, normal heart sounds, no murmur Abdomen: Soft, non tender, not distended, bowel sounds present Neuro: Awake, alert, oriented, conversing well, non focal Extremities: No cyanosis, clubbing or edema Discharge Data Allergies Allergy/AdvReac Type Severity Reaction Status Date / Time No Known Allergies Allergy Unverified 07/20/21 13:48 Consultations 07/20/21 14:24 ED Decision to Admit Stat 07/20/21 17:00 Consult Screwhead [employer] Routine Ordered Studies 07/20/21 12:18 CT head/brain wo con Stat 07/20/21 12:49 CT abd pelvis wo con Stat 07/24/21 07:24 US gallbladder Routine Hospital Course (1) DKA (diabetic ketoacidosis): #. DKA/Newly diagnosed DM- A1c 13.9 No prior history of diabetes per patient, feeling sick for 2 days with nausea, vomiting, increased thirst, increased urination. No family h/o diabetes per patient. Found to have glucose of 1010 with bicarb of 7, pH of 7.06 on VBG, urinary ketones positive On admission, CXR and CT head with no acute findings 07/20 Toxicology screen negative. - Unclear type 1 or 2 at this point- likely type 2 given his obesity and lifestyle- anti-islet antibodies pending but result won't be available for several days - DKA resolved, now on sc insulin which was being managed by glycemic pharmacist. - Also seen by wrapper leaf inspector- recommendations noted and case discussed - Discussed with glycemic pharmacist and wrapper leaf inspector at discharge. 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 He can not use insulin as he is a local company refrigerated truck driver due to risk of hypoglycemia. Patient will be discharged on degludec 70 U qam metformin ER 500 mg daily which will be uptitrated to bid in a week. He will follow up with his PCP and or/endocrinology at [place] for further management. Meds to beds. #. Acute pancreatitis- likely alcoholic pancreatitis. US RUQ with no gallstone or cholecystitis. TG not elevated. CT A/P with acute pancreatitis but no complications, Lipase has trended down. - Symptoms resolved, now tolerating normal food without issues. Also had bowel movement. #. Hypokalemia- resolved with repletion #. Hypophosphatemia- resolved with repletion #. FIONA- resolved. Cr on admission 3.4, now down to 0.8 #. Sinus tachycardia- resolved. Telemetry reviewed, unremarkable otherwise. # UTI- Continue keflex to complete antibiotic course. Total Time Total Time Spent Total Time Spent (In Minutes): 45 Discharge Plan Discharge Items Patient Disposition: Home - Self-Care Reason For Visit: DKA Discharge Diagnosis: Diabetic ketoacidosis, newly diagnosed diabetes mellitus; acute pancreatitis Activity: Resume your previous activity Non-emergency contact: Primary Care Provider Call non-emergency contact if: you have any medication questions and your symptoms worsen Follow-up/Referrals: PCP,NO [Primary Care Provider] - Diet: Carb Consistent or DM2 Addtl Attending Provider Instructions: You have diabetes which is a new diagnosis, you were admitted from it's complication which is diabetic ketoacidosis and it is now resolved. Continue tresiba 70 U every morning. Continue metformin 1 tab daily for 1 week then increase to 1 tab twice daily Continue your blood sugar check You will need close follow up of your diabetes with your family doctor Pending Studies at Discharge: Yes Studies:: Anti-islet antibody Stand-Alone Forms: My BlogCN, Smoking Cessation Medications and DC Order Prescriptions: New metformin 500 mg Tablet Extended Release 24 Hr 500 mg PO DIRECTED Qty: 60 RF: 0 insulin degludec 200 unit/mL (3 mL) insulin pen 70 unit subcut QAM Qty: 9 RF: 0 cephalexin 500 mg capsule 500 mg PO BID 5 Days Qty: 10 RF: 0 No Action No Known Home Medications RF: 0 Discharge Orders: Discharge Order (Routine); Ordered 07/24/21 Ordered By: Marcio [email or web address]/Other Patient Handouts: Keflex Oral Capsule 500 mg, Metformin Oral Tablet 500 mg, Insulin Degludec Pen Injector 200 units/mL Admission Data Admit Date/Time: 07/20/21 14:28 Attending Provider: Marcio Crabtree Admit Provider: Sammi Escobar Primary Care Provider: PCP,NO Other Providers: Sammi Escobar Other Interventions: Discharge Summary Assessment (RN) Last Done: 07/24/21 13:19
== END 2021-07-24 16:20 | disposition home or self-care (01) | DRG 637 ==
LOC: ED 12:12 → SUATTDRO 14:28 → 1E 14:28 → 2S 07-22 23:28
DX: N39.0 Urinary tract infection, site not specified; K85.20 Alcohol induced acute pancreatitis without necrosis or infection; R00.0 Tachycardia, unspecified; E66.9 Obesity, unspecified; E87.6 Hypokalemia; E83.39 Other disorders of phosphorus metabolism; N17.8 Other acute kidney failure; Z72.9 Problem related to lifestyle, unspecified; E86.1 Hypovolemia; E11.10 Type 2 diabetes mellitus with ketoacidosis without coma; R68.0 Hypothermia, not associated with low environmental temperature; Z68.41 Body mass index [BMI] 40.0-44.9, adult; B95.4 Other streptococcus as the cause of diseases classified elsewhere; R10.13 Epigastric pain; G93.40 Encephalopathy, unspecified; E87.0 Hyperosmolality and hypernatremia